=== PATIENT | male | born 1935 | race Caucasian/White ===

== ENCOUNTER 2018-05-15 11:08 | Inpatient (IN) | payer MEDICARE, SELFPAY ==
[2018-05-15] VITALS (13 sets, daily range): BP systolic 131–165; BP diastolic 49–79; PULSE 51–77; RESP 13–21; TEMP 36.7–37; O2SAT 93–99; BMI 24.4; BMI 26.2
--- NOTE | 2018-05-15 12:12 | EKG12_ITS ---
Test Reason : WEAKNESS Blood Pressure : / mmHG Vent. Rate : 065 BPM Atrial Rate : 260 BPM P-R Int : 000 ms QRS Dur : 098 ms QT Int : 458 ms P-R-T Axes : 255 021 -62 degrees QTc Int : 476 ms Atrial flutter with variable A-V block with premature ventricular or aberrantly conducted complexes ST & T wave abnormality, consider inferior ischemia Prolonged QT Abnormal ECG Confirmed by NAHUN LUCIANO, FORD ([id number]), scientific editor SYDNEY STRINGER ([id number]) on 05/19/2018 2:32:17 PM Referred By: Vy Qiu Confirmed By:FORD GARNICA MD
--- NOTE | 2018-05-15 12:15 | ED.VISSUMM ---
- ER Visit Summary Date of Service: 05/15/18 Chief Complaint: Generalized weakness History of Present Illness: The patient is a 82 M tree of noncemented diabetes has not meds according to family. Patient states the last 2 weeks he is just been generally weak. States is been constipated. Denies any melena or diarrhea. No fever. He has had decreased oral intake but denies any specific weight loss. States his blood sugars have been elevated over 400s the last several days and has had increased urination. Denies any fever. No chest pain. No severe headaches. No falls or trauma. Denies vomiting. Physical Examination: Older male no acute distress. Vital signs are stable and afebrile. HEENT exam pupils round reactive light. Extra motions are intact. No facial droop. Normal speech. Dry mucous membranes. No signs of trauma. Neck nontender no lymphadenopathy. Lungs clear to auscultation bilaterally. Heart a flutter on the monitor. No murmur. Rate about 70. Abdomen soft and nontender. Normal bowel sounds no peritoneal signs. Nondistended. Patient is moving all 4 extremities. No edema. No deformity. Equal symmetrical cardiovascular disease specialist strength. Equal symmetrical dorsi and plantar flexion. Neurologically is awake and alert. He answers questions and follows commands. He has no focal motor deficits. Test Results: CBC shows a white count of 16.9. Hemoglobin is 17. Electrolytes sodium 135. Potassium 5.3. CO2 and 9 anion gap of 30 glucose 649 BUN 59 creatinine 2.41. All consistent with DKA and dehydration. UA and troponin are pending. Ketones are moderate. EKG shows atrial flutter with a rate of 65 with no old EKG available for comparison. Chest x-ray shows Emergency Department Course and Treatment: Patient has an elevated blood sugar. Will be treated with 2 L of normal saline. Repeat exam the patient is improving he is on a second liter of fluid and insulin drip will be started. Treatment Plan: I have spoken to the hospitalist the patient will be admitted to the ICU. Disposition: Admission Impression: Acute generalized weakness Acute DKA History of xxi-uruzpyz-zhehbkkjk diabetes Acute dehydration and renal insufficiency Acute atrial flutter This note was generated with ZeeVeeation software. It may contain incorrect words, spelling, and punctuation that were not noted in review of the chart prior to signing ED Disposition - Plan for ED Patient: Chief Complaint: Weakness Referrals: Sheets,Elana, DO [Primary Care Provider] -
--- NOTE | 2018-05-15 12:30 | RAD_ITS ---
STUDY: X-RAY CHEST REASON FOR EXAM: Male, 82 years old. High blood sugar, weakness, confusion. TECHNIQUE: AP portable upright view of the chest on 2 films. COMPARISON: None. FINDINGS: The lungs are clear and expanded. There is no demonstrated pleural abnormality. Normal size heart. Normal mediastinum and kalyani. Normal visualized pulmonary arteries. There is atherosclerotic calcification of the aortic arch with some tortuosity of the descending thoracic segment. There are multilevel degenerative changes of the visualized thoracic spine. Hypertrophic osseous change also seen at the first costal cartilage junctions. 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 There is no demonstrated abnormality of the visualized soft tissue structures of the upper abdomen. RAD/Chest 1 View (Portable) IMPRESSION: No acute cardiopulmonary disease. Electronically Signed: William Acosta MD at 13:45 EST , Service support ,
[2018-05-15] MEDS: 0.9% Normal Saline 1,000 ML 1000 ML IV ×2 (12:44→16:08)
[2018-05-15 12:51] LABS: Absolute Neutrophil Count 15.6 X10^3/uL (2.0-7.7); Basophil# 0.01 X10^3/uL; Basophil% 0.1 % (0-1); Hematocrit 51.8 % (40-54); Hemoglobin 17.3 g/dl (13.0-16.5); Lymphocyte % 4.1 % (19-41); Mean Corp Hgb Conc 33.4 g/gl (32-36); Mean Corpuscular Hgb 30.8 pg (27.0-32.0); Mean Corpuscular Volume 92.2 fL (80-94); Mean Platelet Vol. 11.4 fl (6.2-12.0); Monocyte# 0.51 X10^3/uL; Neutrophil % 92.4 % (47-70); POSITIVE COUNT NO; POSITIVE DIFFERENTIAL NO; POSITIVE MORPHOLOGY NO; Platelet Count 269 K/mm3 (150-450); RBC Distribution Width SD 46.8 fl (35.1-43.9); Red Blood Count 5.62 M/mm3 (4.6-6.2); White Blood Count 16.9 K/mm3 (4.4-11.0)
[2018-05-15 12:56] LABS: Anion Gap 30 (5-15); BUN 59 mg/dL (7-18); BUN/Creat Ratio 24.5 RATIO (10-20); Chloride 96 mmol/L (98-107); Creatinine, Serum 2.41 mg/dL (0.70-1.30); EST Glomerular Filtration Rate 28 mL/min (>60); Est Glom Filt Rate - Afr Amer 33 mL/min (>60); Glucose 649 mg/dL (74-106); Potassium 5.3 mmol/L (3.5-5.1); Sodium Level 135 mmol/L (136-145)
--- NOTE | 2018-05-15 14:40 | HP.PCM_ITS ---
History of Present Illness Date of Admission: 05/15/18 Chief Complaint: worsening lethargy for 2 weeks The patient is a 82 year old M with a PMH of diabetes mellitus, noncompliant with his metformin. He was admitted through the ED on 05/15/2018 with a complaint of generalized weakness and lethargy for 2 weeks. He said he had just not been feeling well and had progressively worsened and so he decided coming to the ED today. Patient has been diabetic for several years and states he was started on insulin which was stopped and he was switched to oral metformin. He admits to not being very compliant with his metformin and does not remember the last time he took it. He denied any fever chills, any cough or chest pain, shortness of breath, any abdominal pain, any diarrhea vomiting. Review of systems otherwise negative. For himself very well. In the ED, vitals were essentially stable he was saturating 96% on 2 L of oxygen. Chemistry showed sodium of 135 with potassium of 5.3 and bicarb of 9 and anion gap of 30. Creatinine was 2.41 with no baseline in EMR and glucose was 649. CBC showed white cell count of 16.9 hemoglobin of 17.3.CXR showed no acute cardiopulmonary process, and EKG showed atrial flutter, with ?T wave inversions in inferior leads. Troponin was pending. He is being admitted to be managed for DKA and atrial flutter. [] Past Medical History Allergies No Known Allergies Allergy (Verified 05/15/18 11:12) Home Medications: Ambulatory Orders Medication Instructions Recorded Aspirin 162.5 mg PO DAILY@0800 05/15/18 Metformin HCl [Glucophage] 1,000 mg PO BIDCM 05/15/18 Surgical History: no surgical history Psychiatric History: No pertinent psych hx Lives: Alone Smoking Status: Former smoker Alcohol: None Drugs: None - *Family History Sibling History Items: Cancer Maternal History Items: High Cholesterol, Heart Disease Paternal History Items: Hypertension Review of Systems Constitutional: Reports: Anorexia, Malaise, Weakness, Fatigue. Denies: Chills, Fever Eyes: Denies: Blurred vision HEENT: Denies: Head Aches, Sinus Congestion, Sinus Drainage Cardiovascular: Denies: Chest Pain, Chest Pressure, Chest Tightness, Heaviness, Light Headedness, Palpitations Respiratory: Denies: Cough, Shortness of Breath, Shortness of breath at rest, Shortness of breath upon exertion, Sputum production Gastrointestinal: Denies: Abdominal Pain, Nausea, Vomiting Genitourinary: Denies: Dysuria Musculoskeletal: Denies: Joint Pain, Joint Tenderness Skin: Denies: Rash, Wounds Neurological: Denies: Numbness, Tingling, Focal weakness Psychiatric: Denies: Anxiety, Depression, Homicidal Ideations, Suicidal Ideations Hematologic/ Lymphatic: Denies: Easy Bruising, Easy Bleeding VTE Information - Inpt Only VTE Present on Admission: No VTE Pharm Prophylaxis ordered?: Yes - Physical Exam General: Alert, Oriented x3, Cooperative, No apparent distress, Lethargic HEENT: Atraumatic, PERRLA, EOMI, Normocephalic Oral: Dry Mucosa Neck: Supple, No JVD, Negative Carotid Bruits Lungs: Clear to auscultation, Normal air movement, No rhonchi, No wheeze, No rales Cardiovascular: Regular rate, Regular Rhythm, Normal S1, Normal S2, No murmurs Abdomen: Bowel Sounds Present, Soft, Non Tender, Non-Distended, No Hepato- splenomegaly Extremities: No clubbing, No cyanosis, No edema, Capillary Refill Less than 3 Seconds Skin: - - ~ 2cm thickened scaly nodular plaque on left forearm Musculoskeletal: No Tenderness to Palpation of Joints or Extremities Lymphatic: No Cervical, Supraclavicular, or Inguinal Adenopathy Neurological: Cranial nerves II-XII grossly intact Psych/Mental Status: Normal Affect, Appropriate, Alert and oriented to time, place, person, mood and affect Vital Signs Temp Pulse Resp BP Pulse Ox 98.6 F 67 18 134/58 H 96 05/15/18 11:10 05/15/18 11:10 05/15/18 11:10 05/15/18 11:10 05/15/18 11:10 Oxygen Delivery Method Room Air Weight: 175 lb Body Mass Index (BMI) 24.4 Laboratory Tests Past 24 Hrs 05/15/18 05/15/18 05/15/18 11:50 11:50 11:50 WBC 16.9 H RBC 5.62 Hgb 17.3 H Hct 51.8 MCV 92.2 MCH 30.8 MCHC 33.4 RDW 14.0 RDW Differential 46.8 H Plt Count 269 MPV 11.4 Immature Gran % (Auto) 0.400 Neut % (Auto) 92.4 H Lymph % (Auto) 4.1 L [place] % (Auto) 3.0 Eos % (Auto) 0.0 Baso % (Auto) 0.1 Absolute Neuts (auto) 15.6 H Absolute Lymphs (auto) 0.70 L Total Counted Not Reportable Sodium 135 L Potassium 5.3 H Chloride 96 L Carbon Dioxide 9.0 L* Anion Gap 30 H BUN 59 H Creatinine 2.41 H Estim Creat Clear Calc 25.60 Est GFR (MDRD) Af Amer 33 L Est GFR (MDRD) Non-Af 28 L BUN/Creatinine Ratio 24.5 H Glucose 649 H* Calcium 9.0 Acetone Level MODERATE H Diagnostic Data Chest X-Ray 05/15/18 12:30 IMPRESSION: No acute cardiopulmonary disease. Electronically Signed: William Acosta MD at 13:45 EST , Service support , Assessment/Plan 82 y/o With a history of diabetes mellitus and noncompliant with medication presenting with a complaint of generalized worsening weakness and lethargy for 2 weeks. 1. DKA in a known diabetic due to noncompliance * not compliant with his meds; the last time he took his metformin. * Bicarb was 9 and anion gap is 30. * ABG not done. Troponin pending. Chest x-ray showed no acute cardia pulmonary process. * CBC showed white cell count around 16 but this is likely due to hemoconcentration as hemoglobin was also elevated at 17.3. * Potassium is 5.3, sodium is 135. * Admit to ICU. * Continue IV fluids NS at 250 cc/h; started on insulin drip 1 unit/kg/h in the ED. Will continue. * Monitor BMP every 4. check A1C * Will check ABG.\ * [facility] consult. * continue IV fluids and insulin drip until anion gap closes. To switch to D5 with half-normal saline 1 blood sugars less than 250. * Once Process will switch to oral meds and insulin or other oral hypoglycemic agent based on A1c. * 2. Atrial flutter * EKG showed atrial flutter with possible T wave inversions in inferior leads. * no Known history of known cardiac disease. * this may be induced by stress of DKA * Initial troponin-0.056; will cycle and monitor; if it trends up, will place cardiology consult tomorrow morning. * Order 2D echo. * cardiology consult. * 3. CEE * Likely prerenal due to decreased intake.. No baseline known patient states he never been told he has a kidney problem. * hdyrate with IVF and monitor * will check urine electrolytes to assess FeNA * 4. Hyponatremia: Na is 135; due to hyperglycemia. Corrected sodium is 144. WIll monitor 5. Diabetes mellitus: noncompliant with meds. Currently in DKA; management as under 1. DVT prophylaxis: heparin Code status: Patient counseled extensively about different types of CODE STATUS including full code, DNR CCA and DNR CCA. Patient elects to be full code. Total [id number] time 17 minutes. Code Visit Inpatient E&M: 18656 Init Hosp L3 Procedures: 72248 Advncd Care Plan 30 Min
[2018-05-15] MEDS: 0.9% Normal Saline 1,000 ML 250 ML IV (16:30)
[2018-05-15 16:45] LABS: Bedside Glucose 473 mg/dL (70-110)
[2018-05-15 18:01] LABS: Bedside Glucose 390 mg/dL (70-110)
[2018-05-15 18:05] LABS: Bedside Glucose 364 mg/dL (70-110)
[2018-05-15 18:31] LABS: Anion Gap 25 (5-15); BUN 60 mg/dL (7-18); BUN/Creat Ratio 26.7 RATIO (10-20); Calcium,Total 8.2 mg/dL (8.5-10.1); Chloride 106 mmol/L (98-107); Creatinine, Serum 2.25 mg/dL (0.70-1.30); EST Glomerular Filtration Rate 30 mL/min (>60); Est Glom Filt Rate - Afr Amer 36 mL/min (>60); Estimated Creatinine Clearance 26.59 ml/min; Glucose 311 mg/dL (74-106); Potassium 4.4 mmol/L (3.5-5.1); Sodium Level 143 mmol/L (136-145)
[2018-05-15 18:37] LABS: Hemoglobin A1c 13.3 % (4.2-6.3)
[2018-05-15 19:06] LABS: Bedside Glucose 277 mg/dL (70-110)
[2018-05-15] MEDS: 0.9% Normal Saline 1,000 ML 175 ML IV (21:05)
[2018-05-15] MEDS: Heparin Injection (Vial) 5,000 UNIT/ML VIAL 5000 UNIT SC (21:11)
[2018-05-15] MEDS: Magnesium Hydroxide 30 ML UDC 45 ML PO (21:12)
[2018-05-15] MEDS: Dext 5%-0.45% NS 1,000 ML 150 ML IV (21:15)
[2018-05-15 21:44] LABS: Bacteria 0 SEEN /hpf (None Seen); Mucous, Urine 0 SEEN /hpf (<or=2+)
[2018-05-15 21:46] LABS: Color, Urine Yellow (Yellow); Glucose, Dipstick 1000 mg/dl (Normal); Leukocyte Esterase-Dipstick 25 /ul (Negative); Nitrite-Dipstick Negative (Negative); Occult Blood-Urine 150 /ul (Negative); Protein-Dipstick 30 mg/dl (Negative); Urine Bilirubin Dipstick Negative (Negative); Urine Clarity Clear (Clear); Urine Urobilinogen 1 mg/dl (Normal)
[2018-05-15 21:48] LABS: Urine Sodium 20 mmol/L (Not Establ.)
[2018-05-15 21:56] LABS: Hyaline Cast 0-5 SEEN /lpf (0-5); Ketone-Dipstick 150 mg/dl (Negative); Red Blood Cells-Urine 0-5 SEEN /hpf (0-5); Squamous Epithelial Cells - UA 0-5 SEEN /hpf (0-5); White Blood Cells 5-10 SEEN /hpf (0-5)
[2018-05-15] MEDS: 0.9% NaCl Peripheral Flush Adult/Peds IV ×2 (22:05→22:06)
[2018-05-15 22:10] LABS: Bedside Glucose 201 mg/dL (70-110)
[2018-05-15 22:10] LABS: Bedside Glucose 180 mg/dL (70-110)
[2018-05-15 22:10] LABS: Bedside Glucose 222 mg/dL (70-110)
[2018-05-15 22:33] LABS: Anion Gap 17 (5-15); BUN 59 mg/dL (7-18); BUN/Creat Ratio 30.9 RATIO (10-20); Calcium,Total 7.9 mg/dL (8.5-10.1); Chloride 109 mmol/L (98-107); Creatinine, Serum 1.91 mg/dL (0.70-1.30); EST Glomerular Filtration Rate 36 mL/min (>60); Est Glom Filt Rate - Afr Amer 44 mL/min (>60); Estimated Creatinine Clearance 31.32 ml/min; Glucose 221 mg/dL (74-106); Potassium 4.2 mmol/L (3.5-5.1); Sodium Level 143 mmol/L (136-145)
[2018-05-16] VITALS (19 sets, daily range): BP systolic 121–146; BP diastolic 50–66; PULSE 49–79; RESP 11–21; TEMP 36.1–37.1; O2SAT 94–99
[2018-05-16 00:11] LABS: Bedside Glucose 202 mg/dL (70-110)
[2018-05-16 00:11] LABS: Bedside Glucose 190 mg/dL (70-110)
[2018-05-16 02:35] LABS: Anion Gap 10 (5-15); BUN 54 mg/dL (7-18); BUN/Creat Ratio 29.5 RATIO (10-20); Calcium,Total 8.1 mg/dL (8.5-10.1); Chloride 112 mmol/L (98-107); Creatinine, Serum 1.83 mg/dL (0.70-1.30); EST Glomerular Filtration Rate 38 mL/min (>60); Est Glom Filt Rate - Afr Amer 46 mL/min (>60); Estimated Creatinine Clearance 32.69 ml/min; Glucose 189 mg/dL (74-106); Potassium 3.7 mmol/L (3.5-5.1); Sodium Level 145 mmol/L (136-145)
[2018-05-16 03:06] LABS: Bedside Glucose 158 mg/dL (70-110)
[2018-05-16 03:06] LABS: Bedside Glucose 163 mg/dL (70-110)
[2018-05-16 03:06] LABS: Bedside Glucose 201 mg/dL (70-110)
[2018-05-16] MEDS: Dext 5%-0.45% NS 1,000 ML 150 ML IV (04:02)
[2018-05-16] MEDS: Heparin Injection (Vial) 5,000 UNIT/ML VIAL 5000 UNIT SC (05:11)
[2018-05-16 06:06] LABS: Bedside Glucose 117 mg/dL (70-110)
[2018-05-16 06:06] LABS: Bedside Glucose 94 mg/dL (70-110)
[2018-05-16 06:26] LABS: Absolute Lymphocyte Count 0.81 X10^3/ul (0.83-4.51); Absolute Neutrophil Count 13.4 X10^3/uL (2.0-7.7); Basophil# 0.01 X10^3/uL; Basophil% 0.1 % (0-1); Eosinophil# 0.01 X10^3/uL; Eosinophils% 0.1 % (0-5); Hematocrit 43.4 % (40-54); Hemoglobin 15.1 g/dl (13.0-16.5); Lymphocyte # 0.81 X10^3/ul (4.0); Lymphocyte % 5.4 % (19-41); Mean Corp Hgb Conc 34.8 g/gl (32-36); Mean Corpuscular Volume 86.1 fL (80-94); Mean Platelet Vol. 10.9 fl (6.2-12.0); Monocyte# 0.88 X10^3/uL; Monocyte% 5.8 % (0-10); Neutrophil # 13.39 X10^3/uL (2.7-7.7); Neutrophil % 88.5 % (47-70); Platelet Count 179 K/mm3 (150-450); RBC Distribution Width CV 13.6 % (11.6-14.6); RBC Distribution Width SD 42.1 fl (35.1-43.9); Red Blood Count 5.04 M/mm3 (4.6-6.2); White Blood Count 15.1 K/mm3 (4.4-11.0)
[2018-05-16 06:27] LABS: POSITIVE COUNT NO; POSITIVE DIFFERENTIAL NO; POSITIVE MORPHOLOGY NO
[2018-05-16 06:36] LABS: Anion Gap 10 (5-15); BUN 50 mg/dL (7-18); BUN/Creat Ratio 28.4 RATIO (10-20); Calcium,Total 8.2 mg/dL (8.5-10.1); Chloride 113 mmol/L (98-107); Creatinine, Serum 1.76 mg/dL (0.70-1.30); EST Glomerular Filtration Rate 40 mL/min (>60); Est Glom Filt Rate - Afr Amer 48 mL/min (>60); Estimated Creatinine Clearance 33.99 ml/min; Glucose 102 mg/dL (74-106); Potassium 3.8 mmol/L (3.5-5.1); Sodium Level 147 mmol/L (136-145)
--- NOTE | 2018-05-16 06:49 | CON.PCM_ITS ---
Reason for Consult Date of Consultation: 05/16/18 Reason for Consultation: Diabetic ketoacidosis History of Present Illness: The patient is an 82-year-old male, with a history as outlined below, who presented to the emergency department on May 15 with complaints of generalized weakness and decreased urine output. The patient does have a history of diabetes mellitus and is currently prescribed outpatient metformin twice daily. The patient states that at his baseline, his diabetes is managed by his primary care provider, Dr. Ambrosio in [place]. He does report that he has not taken his metformin for several days. He is not able to give a reason why. The patient does reside in a home by himself currently. On presentation to the emergency department, the patient was noted to be afebrile, hemodynamically stable and maintaining appropriate oxygen saturations on room air. Laboratory evaluation revealed elevated white blood cell count to 17,000. Chemistry profile was notable for a potassium of 5.3, chloride of 96, bicarbonate of 9, acute kidney injury with creatinine of 2.41 and an elevated anion gap to 30. Patient's glucose was noted to be 649. Troponin was mildly elevated to 0.056. A moderate serum acetone level was noted. A plain film chest x-ray was obtained and revealed no acute cardiopulmonary process. The patient was provided with supplemental IV fluid hydration and started on a continuous insulin infusion. He was subsequently admitted to the medical intensive care unit for ongoing management. No overnight issues were noted by ICU nursing staff. The patient's blood glucose levels are now under improved control. His anion gap has been closed x2. Orders have been given to initiate the patient on basal insulin and sliding scale coverage. Past Medical History Allergies No Known Allergies Allergy (Verified 05/15/18 11:12) Home Medications: Ambulatory Orders Medication Instructions Recorded Aspirin 162.5 mg PO DAILY@0800 05/15/18 Metformin HCl [Glucophage] 1,000 mg PO BIDCM 05/15/18 Surgical History: no surgical history Psychiatric History: No pertinent psych hx Lives: Alone Smoking Status: Former smoker Tobacco Use: Cigarettes Alcohol: None Drugs: None - *Family History Sibling History Items: Cancer Maternal History Items: High Cholesterol, Heart Disease Paternal History Items: Hypertension Review of Systems Constitutional: Reports: Malaise, Weakness Eyes: Denies: Blurred vision, Double vision HEENT: Denies: Head Aches, Sinus Congestion, Sinus Drainage Cardiovascular: Denies: Chest Pain, Palpitations Respiratory: Denies: Cough, Shortness of breath at rest, Sputum production Gastrointestinal: Denies: Abdominal Pain, Nausea, Vomiting Genitourinary: Reports: - - Decreased urine output Musculoskeletal: Denies: Joint Pain, Joint Tenderness Skin: Denies: Rash, Wounds Neurological: Denies: Numbness, Tingling, Focal weakness Psychiatric: Denies: Anxiety, Depression, Homicidal Ideations, Suicidal Ideations Hematologic/ Lymphatic: Denies: Easy Bruising, Easy Bleeding Objective: The patient's most recent lab work, culture data and imaging studies have all been personally reviewed. - Physical Exam General: Alert, Cooperative, No apparent distress HEENT: Atraumatic, PERRLA, Normocephalic Oral: Dry Mucosa Neck: Supple, No Nodes, Trachea Midline Lungs: Normal air movement, No rhonchi, No wheeze, No rales Cardiovascular: Normal S1, Normal S2, Bradycardic, Irregular Rate Abdomen: Bowel Sounds Present, Soft, Non Tender Extremities: No clubbing, No cyanosis, No edema Skin: No breakdown Musculoskeletal: No Muscle Wasting Lymphatic: No Cervical, Supraclavicular, or Inguinal Adenopathy Neurological: Cranial nerves II-XII grossly intact, Neuro grossly intact Psych/Mental Status: Normal Affect, Appropriate Vital Signs Temp Pulse Resp BP Pulse Ox 36.1 C L 71 19 H 125/50 H 98 05/16/18 04:00 05/16/18 06:00 05/16/18 06:00 05/16/18 06:00 05/16/18 06:00 Oxygen Flow Rate (L/min) 2 Oxygen Delivery Method Nasal Cannula Weight: 186 lb 15.232 oz Body Mass Index (BMI) 26.2 Finger Stick Blood Glucose 105 Intake and Output for Last 24 Hours 05/14/18 05/15/18 05/16/18 23:59 23:59 23:59 Intake Total 2404 / 2404 2060.6 / 2060.6 Output Total 300 / 300 550 / 550 Balance 2104 / 2104 1510.6 / 1510.6 Laboratory Tests Past 24 Hrs 05/15/18 05/15/18 05/15/18 11:50 11:50 11:50 WBC 16.9 H RBC 5.62 Hgb 17.3 H Hct 51.8 MCV 92.2 MCH 30.8 MCHC 33.4 RDW 14.0 RDW Differential 46.8 H Plt Count 269 MPV 11.4 Immature Gran % (Auto) 0.400 Neut % (Auto) 92.4 H Lymph % (Auto) 4.1 L [place] % (Auto) 3.0 Eos % (Auto) 0.0 Baso % (Auto) 0.1 Absolute Neuts (auto) 15.6 H Absolute Lymphs (auto) 0.70 L Total Counted Not Reportable Sodium 135 L Potassium 5.3 H Chloride 96 L Carbon Dioxide 9.0 L* Anion Gap 30 H BUN 59 H Creatinine 2.41 H Estim Creat Clear Calc 25.60 Est GFR (MDRD) Af Amer 33 L Est GFR (MDRD) Non-Af 28 L BUN/Creatinine Ratio 24.5 H Glucose 649 H* Hemoglobin A1c Calcium 9.0 Troponin I Urine Color Urine Clarity Urine pH Ur Specific [place] Urine Protein Urine Glucose (UA) Urine Ketones Urine Occult Blood Urine Nitrite Urine Bilirubin Urine Urobilinogen Ur Leukocyte Esterase Urine RBC Urine WBC Ur Squamous Epith Cells Urine Bacteria Hyaline Casts Urine Mucus Ur Random Sodium Urine Creatinine Acetone Level MODERATE H 05/15/18 05/15/18 05/15/18 11:50 18:00 18:00 WBC RBC Hgb Hct MCV MCH MCHC RDW RDW Differential Plt Count MPV Immature Gran % (Auto) Neut % (Auto) Lymph % (Auto) [place] % (Auto) Eos % (Auto) Baso % (Auto) Absolute Neuts (auto) Absolute Lymphs (auto) Total Counted Sodium 143 Potassium 4.4 Chloride 106 Carbon Dioxide 12.0 L Anion Gap 25 H BUN 60 H Creatinine 2.25 H Estim Creat Clear Calc 26.59 Est GFR (MDRD) Af Amer 36 L Est GFR (MDRD) Non-Af 30 L BUN/Creatinine Ratio 26.7 H Glucose 311 H Hemoglobin A1c 13.3 H Calcium 8.2 L Troponin I 0.056 H Urine Color Urine Clarity Urine pH Ur Specific [place] Urine Protein Urine Glucose (UA) Urine Ketones Urine Occult Blood Urine Nitrite Urine Bilirubin Urine Urobilinogen Ur Leukocyte Esterase Urine RBC Urine WBC Ur Squamous Epith Cells Urine Bacteria Hyaline Casts Urine Mucus Ur Random Sodium Urine Creatinine Acetone Level 05/15/18 05/15/18 05/15/18 19:35 21:20 21:20 WBC RBC Hgb Hct MCV MCH MCHC RDW RDW Differential Plt Count MPV Immature Gran % (Auto) Neut % (Auto) Lymph % (Auto) [place] % (Auto) Eos % (Auto) Baso % (Auto) Absolute Neuts (auto) Absolute Lymphs (auto) Total Counted Sodium Potassium Chloride Carbon Dioxide Anion Gap BUN Creatinine Estim Creat Clear Calc Est GFR (MDRD) Af Amer Est GFR (MDRD) Non-Af BUN/Creatinine Ratio Glucose Hemoglobin A1c Calcium Troponin I 0.070 H Urine Color Yellow Urine Clarity Clear Urine pH 5.0 Ur Specific [place] 1.020 Urine Protein 30 H Urine Glucose (UA) 1000 H Urine Ketones 150 H Urine Occult Blood 150 H Urine Nitrite Negative Urine Bilirubin Negative Urine Urobilinogen 1 H Ur Leukocyte Esterase 25 H Urine RBC 0-5 SEEN Urine WBC 5-10 SEEN Ur Squamous Epith Cells 0-5 SEEN Urine Bacteria 0 SEEN Hyaline Casts 0-5 SEEN Urine Mucus 0 SEEN Ur Random Sodium Urine Creatinine 68.20 Acetone Level 05/15/18 05/15/18 05/15/18 21:20 22:10 22:10 WBC RBC Hgb Hct MCV MCH MCHC RDW RDW Differential Plt Count MPV Immature Gran % (Auto) Neut % (Auto) Lymph % (Auto) [place] % (Auto) Eos % (Auto) Baso % (Auto) Absolute Neuts (auto) Absolute Lymphs (auto) Total Counted Sodium 143 Potassium 4.2 Chloride 109 H Carbon Dioxide 17.0 L Anion Gap 17 H BUN 59 H Creatinine 1.91 H Estim Creat Clear Calc 31.32 Est GFR (MDRD) Af Amer 44 L Est GFR (MDRD) Non-Af 36 L BUN/Creatinine Ratio 30.9 H Glucose 221 H Hemoglobin A1c Calcium 7.9 L Troponin I 0.077 H Urine Color Urine Clarity Urine pH Ur Specific [place] Urine Protein Urine Glucose (UA) Urine Ketones Urine Occult Blood Urine Nitrite Urine Bilirubin Urine Urobilinogen Ur Leukocyte Esterase Urine RBC Urine WBC Ur Squamous Epith Cells Urine Bacteria Hyaline Casts Urine Mucus Ur Random Sodium 20 Urine Creatinine Acetone Level 05/16/18 05/16/18 05/16/18 02:00 06:05 06:05 WBC 15.1 H RBC 5.04 Hgb 15.1 Hct 43.4 MCV 86.1 MCH 30.0 MCHC 34.8 RDW 13.6 RDW Differential 42.1 Plt Count 179 MPV 10.9 Immature Gran % (Auto) 0.100 Neut % (Auto) 88.5 H Lymph % (Auto) 5.4 L [place] % (Auto) 5.8 Eos % (Auto) 0.1 Baso % (Auto) 0.1 Absolute Neuts (auto) 13.4 H Absolute Lymphs (auto) 0.81 L Total Counted Not Reportable Sodium 145 147 H Potassium 3.7 3.8 Chloride 112 H 113 H Carbon Dioxide 23.0 24.0 Anion Gap 10 10 BUN 54 H 50 H Creatinine 1.83 H 1.76 H Estim Creat Clear Calc 32.69 33.99 Est GFR (MDRD) Af Amer 46 L 48 L Est GFR (MDRD) Non-Af 38 L 40 L BUN/Creatinine Ratio 29.5 H 28.4 H Glucose 189 H 102 Hemoglobin A1c Calcium 8.1 L 8.2 L Troponin I Urine Color Urine Clarity Urine pH Ur Specific [place] Urine Protein Urine Glucose (UA) Urine Ketones Urine Occult Blood Urine Nitrite Urine Bilirubin Urine Urobilinogen Ur Leukocyte Esterase Urine RBC Urine WBC Ur Squamous Epith Cells Urine Bacteria Hyaline Casts Urine Mucus Ur Random Sodium Urine Creatinine Acetone Level POC Glucose 05/16/18 05/16/18 05/16/18 05:03 04:04 02:59 POC Glucose 94 117 H 163 H 05/16/18 05/16/18 05/16/18 02:03 01:04 00:00 POC Glucose 158 H 201 H 202 H 05/15/18 05/15/18 05/15/18 23:00 22:00 21:09 POC Glucose 190 H 201 H 180 H 05/15/18 05/15/18 05/15/18 20:03 19:00 17:58 POC Glucose 222 H 277 H 364 H 05/15/18 05/15/18 17:22 16:34 POC Glucose 390 H 473 H* Clinical Impression(s) from Imaging Studies Chest X-Ray 05/15/18 12:30 IMPRESSION: No acute cardiopulmonary disease. Electronically Signed: William Acosta MD at 13:45 EST , Service support , Assessment/Plan RECOMMENDATIONS: 1. Continue management per DKA protocol. The patient can be transitioned from continuous insulin infusion to basal insulin and sliding scale coverage. 2. Diet can be advanced at this time. 3. Supplemental IV fluids can be continued, given improving renal insufficiency. 4. Avoid metformin, given kidney dysfunction 5. May wish to consider holding beta-kajal, given slow a-flutter noted on telemetry. IMPRESSIONS: 1. Diabetic ketoacidosis secondary to outpatient medication noncompliance The patient presented to the hospital with diabetic ketoacidosis secondary to outpatient medication noncompliance. His hemoglobin A1c was noted to be greater than 13. He has been managed per DKA protocol with supplemental IV fluid hydration and continuous insulin infusion. His anion gap has now been closed x2. Therefore, recommend transitioning to basal insulin regimen and sliding scale coverage. The patient's diet can be advanced accordingly. Avoid metform in, given renal insufficiency. Nutrition consultation placed for diabetic education. 2. Acute kidney injury Likely secondary to prerenal azotemia in the setting of osmotic diuresis due to diabetic ketoacidosis. Improving with supplemental IV fluid hydration. This will be continued without change. Continue to monitor urine output. No current indication for renal replacement therapy. 3. Atrial flutter/troponin elevation Unclear chronicity for the patient's atrial flutter. Troponin elevation may be secondary to demand ischemia in the setting of #1. An echocardiogram is currently pending for further evaluation. This note was generated with [employer] dictation software. It may contain incorrect words, spelling, and punctuation that were not noted in checking the note before signing. DISPOSITION: The patient is medically stable for transfer out of the intensive care unit. Given the patient's lack of ongoing ICU needs, will sign off. Please call with any additional questions. Code Visit Inpatient E&M: 77427 Init Hosp L2
--- NOTE | 2018-05-16 06:55 | PCM.PN.HOSP ---
Subjective: Patient notes feeling improved since initial presentation and denies any acute events. Patient anion gap closure x2 now with transition off insulin drip to subcu insulin. Patient currently eating and states this is well tolerated. Patient remains in atrial flutter, asymptomatic. Discussed importance of compliance with diabetic regimen and stated that upon discharge she would need to be restarted on insulin therapy secondary to his elevated A1c. Patient amenable transition out of the ICU given improvement. Patient denies fevers, chills, nausea, emesis, abdominal pain, chest pain or dyspnea. Objective: Physical Examination: General: awake, alert, oriented x 3 and cooperative, seated upright in the ICU bed in no apparent distress, notes feeling improved since initial presentation. Skin: normal color, turgor, no icterus, cyanosis except occasional various staged extremity ecchymoses. HEENT: AT/NC, EOMI, PERRLA, mildly dry MM. Lungs: CTA bilaterally, moderate effort, mild decrease BL bases, no rales, ronchi or wheezing. Heart: Regular, currently rate controlled; no gallop, rub audible. Abdomen: soft, NTTP, ND, normal BS. Extremities: no cyanosis, clubbing, or edema. Neurological: patient awake, alert, oriented x 3; cognitive function intact; pupils equally reactive to light and accomodation; cranial nerves II-XII grossly normal, moving all 4 extremities, no focal deficits, strength moderately to severely globally decreased secondary to acute presentation. Psychiatric: affect appears fatigued, no acute evidence of depressive or anxiety feelings. Vitals/I&O's: Vital Signs Temp Pulse Resp BP Pulse Ox 97 F L 71 19 H 125/50 H 98 05/16/18 04:00 05/16/18 06:00 05/16/18 06:00 05/16/18 06:00 05/16/18 06:00 Oxygen Flow Rate (L/min) 2 Oxygen Delivery Method Nasal Cannula Weight: 186 lb 15.232 oz Body Mass Index (BMI) 26.2 Finger Stick Blood Glucose 105 Intake and Output for Last 24 Hours 05/14/18 05/15/18 05/16/18 23:59 23:59 23:59 Intake Total 2404 / 2404 2060.6 / 2060.6 Output Total 300 / 300 550 / 550 Balance 2104 / 2104 1510.6 / 1510.6 Laboratory Results 05/15/18 11:50: WBC 16.9 H, RBC 5.62, Hgb 17.3 H, Hct 51.8, MCV 92.2, MCH 30.8, MCHC 33.4, RDW 14.0, RDW Differential 46.8 H, Plt Count 269, MPV 11.4, Immature Gran % (Auto) 0.400, Neut % (Auto) 92.4 H, Lymph % (Auto) 4.1 L, Childress % (Auto) 3.0, Eos % (Auto) 0.0, Baso % (Auto) 0.1, Absolute Neuts (auto) 15.6 H, Absolute Lymphs (auto) 0.70 L, Total Counted Not Reportable 05/15/18 11:50: Sodium 135 L, Potassium 5.3 H, Chloride 96 L, Carbon Dioxide 9.0 L*, Anion Gap 30 H, BUN 59 H, Creatinine 2.41 H, Estim Creat Clear Calc 25.60, Est GFR (MDRD) Af Amer 33 L, Est GFR (MDRD) Non-Af 28 L, BUN/Creatinine Ratio 24.5 H, Glucose 649 H*, Calcium 9.0 05/15/18 11:50: Acetone Level MODERATE H 05/15/18 11:50: Troponin I 0.056 H 05/15/18 16:34: POC Glucose 473 H* 05/15/18 17:22: POC Glucose 390 H 05/15/18 17:58: POC Glucose 364 H 05/15/18 18:00: Hemoglobin A1c 13.3 H 05/15/18 18:00: Sodium 143, Potassium 4.4, Chloride 106, Carbon Dioxide 12.0 L, Anion Gap 25 H, BUN 60 H, Creatinine 2.25 H, Estim Creat Clear Calc 26.59, Est GFR (MDRD) Af Amer 36 L, Est GFR (MDRD) Non-Af 30 L, BUN/Creatinine Ratio 26.7 H, Glucose 311 H, Calcium 8.2 L 05/15/18 19:00: POC Glucose 277 H 05/15/18 19:35: Troponin I 0.070 H 05/15/18 20:03: POC Glucose 222 H 05/15/18 21:09: POC Glucose 180 H 05/15/18 21:20: Urine Color Yellow, Urine Clarity Clear, Urine pH 5.0, Ur Specific [place] 1.020, Urine Protein 30 H, Urine Glucose (UA) 1000 H, Urine Ketones 150 H, Urine Occult Blood 150 H, Urine Nitrite Negative, Urine Bilirubin Negative, Urine Urobilinogen 1 H, Ur Leukocyte Esterase 25 H, Urine RBC 0-5 SEEN, Urine WBC 5-10 SEEN, Ur Squamous Epith Cells 0-5 SEEN, Urine Bacteria 0 SEEN, Hyaline Casts 0-5 SEEN, Urine Mucus 0 SEEN 05/15/18 21:20: Urine Creatinine 68.20 05/15/18 21:20: Ur Random Sodium 20 05/15/18 22:00: POC Glucose 201 H 05/15/18 22:10: Sodium 143, Potassium 4.2, Chloride 109 H, Carbon Dioxide 17.0 L, Anion Gap 17 H, BUN 59 H, Creatinine 1.91 H, Estim Creat Clear Calc 31.32, Est GFR (MDRD) Af Amer 44 L, Est GFR (MDRD) Non-Af 36 L, BUN/Creatinine Ratio 30.9 H, Glucose 221 H, Calcium 7.9 L 05/15/18 22:10: Troponin I 0.077 H 05/15/18 23:00: POC Glucose 190 H 05/16/18 00:00: POC Glucose 202 H 05/16/18 01:04: POC Glucose 201 H 05/16/18 02:00: Sodium 145, Potassium 3.7, Chloride 112 H, Carbon Dioxide 23.0, Anion Gap 10, BUN 54 H, Creatinine 1.83 H, Estim Creat Clear Calc 32.69, Est GFR (MDRD) Af Amer 46 L, Est GFR (MDRD) Non-Af 38 L, BUN/Creatinine Ratio 29.5 H, Glucose 189 H, Calcium 8.1 L 05/16/18 02:03: POC Glucose 158 H 05/16/18 02:59: POC Glucose 163 H 05/16/18 04:04: POC Glucose 117 H 05/16/18 05:03: POC Glucose 94 05/16/18 06:05: WBC 15.1 H, RBC 5.04, Hgb 15.1, Hct 43.4, MCV 86.1, MCH 30.0, MCHC 34.8, RDW 13.6, RDW Differential 42.1, Plt Count 179, MPV 10.9, Immature Gran % (Auto) 0.100, Neut % (Auto) 88.5 H, Lymph % (Auto) 5.4 L, Childress % (Auto) 5.8, Eos % (Auto) 0.1, Baso % (Auto) 0.1, Absolute Neuts (auto) 13.4 H, Absolute Lymphs (auto) 0.81 L, Total Counted Not Reportable 05/16/18 06:05: Sodium 147 H, Potassium 3.8, Chloride 113 H, Carbon Dioxide 24.0, Anion Gap 10, BUN 50 H, Creatinine 1.76 H, Estim Creat Clear Calc 33.99, Est GFR (MDRD) Af Amer 48 L, Est GFR (MDRD) Non-Af 40 L, BUN/Creatinine Ratio 28.4 H, Glucose 102, Calcium 8.2 L Current Medications Dextrose (D50w Syringe) 0 gm IV X1 PRN; Protocol PRN Reason: HYPOGLYCEMIA Heparin Sodium (Porcine) (Heparin Na) 5,000 unit SC Q8 [facility] Last Admin: 05/16/18 05:11 Dose: 5,000 unit Sodium Chloride () 250 mls @ 15 mls/hr IV .[id number] PRN PRN Reason: SALINE FLUSH Sodium Chloride () 250 mls @ 15 mls/hr IV .[id number] PRN PRN Reason: SALINE FLUSH Dextrose/Sodium Chloride () 1,000 mls @ 150 mls/hr IV .[id number] [facility] Last Admin: 05/16/18 04:02 Dose: 150 mls/hr Influenza Virus Vaccine Quadrival (Fluarix/Fluzone) 0.5 ml IM .ONCE ONE Stop: 05/16/18 10:01 Insulin Glargine (Lantus (Bkc)) 15 units SC BID MEDINA Insulin Human Lispro (Humalog Kwikpen (Bkc)) 0 unit SC ACHS [facility]; Protocol Magnesium Hydroxide (Milk Of Magnesia) 30 ml PO DAILY PRN PRN PRN Reason: Constipation Sodium Chloride () 5 - 15 ml IV UD PRN PRN Reason: SALINE FLUSH Last Admin: 05/15/18 22:06 Dose: 15 ml Medical Necessity - Tobacco Use Smoking Status: Former smoker Tobacco Use: Cigarettes Assessment/Plan The patient is an 82 y/o M w/ PMHx: Diabetes mellitus type II, Non-compliant, Overweight who presents to the [facility] ED on 05/15/18 with generalized weakness, lethargy, progressively worsening x 2 weeks with poor compliance with his oral DM regimen. (1) DKA w/ Diabetes mellitus type II: Admission CBC w/ WBC 16.9, Hgb 17.3, Plts 269 with L shift, BMP w/ Na 135, K 5.3, Chl 96, CO2 9, AG 30, BUN/Cr 59/2.41, gluocse 649, HgbA1c 13.3%. Patient started on an insulin drip. Admitted to the ICU, continued on insulin drip until AG closure this AM, transitioned to SC insulin, will obtain mag and phos levels w/ repletion as needed, nutrition consultation. Encouraged diet and insulin regimen compliance. ICU physician consulted, following. (2) Chest Pain: EKG in ED w/ noted atrial flutter with ? T wave inversion inferior leads, CXR w/ no acute findings, initial trop 0.056. Admitted to ICU as noted, place on a monitored bed to assure no acute myocardial infarction with serial cardiac enzymes and EKGs. Trop trend 0.056-->0.070-->0.077. ECHO ordered, pending. Mag pending. ASA, NG, morphine. (3) Acute kidney injury on Suspected CKD unclear stage: Secondary to acute presentation #1. Admission BUN/Cr 59/2.41, prior baseline creatinine not noted. Will continue to hydrate, hold nephrotoxic medications and trend BMP. 05/16/18 BUN/Cr 50/1.76. FeNa assessment w/ 0.39% consistent with pre-renal presentation given acute #1. May need Nephrology referral outpatient. (4) ? New Onset, Paroxsymal atrial flutter: EKG in ED w/ atrial flutter. Will maintain on telemetry, cardiac enzyme serial set 0.056-->0.070-->0.077, obtain magnesium level, obtain ECHO, obtain TSH level. CHADs scoring moderate risk for age and DM. Would consider this appropriate for anticoagulation start at this time, will initiate renally dosed eliquis. Cardiology consulted, pending. (5) DVT prophylaxis: SCDs, initiate eliquis, renally dosed, discontinue heparin SC chemoprophylaxis. (6) Code Status: FULL. Code Visit Inpatient E&M: 00871 Subs Hosp L3
--- NOTE | 2018-05-16 07:13 | PN_ITS ---
Subjective: Patient notes feeling improved since initial presentation and denies any acute events. Patient anion gap closure x2 now with transition off insulin drip to subcu insulin. Patient currently eating and states this is well tolerated. Patient remains in atrial flutter, asymptomatic. Discussed importance of compliance with diabetic regimen and stated that upon discharge she would need to be restarted on insulin therapy secondary to his elevated A1c. Patient amenable transition out of the ICU given improvement. Patient denies fevers, chills, nausea, emesis, abdominal pain, chest pain or dyspnea. Objective: Physical Examination: General: awake, alert, oriented x 3 and cooperative, seated upright in the ICU bed in no apparent distress, notes feeling improved since initial presentation. Skin: normal color, turgor, no icterus, cyanosis except occasional various staged extremity ecchymoses. HEENT: AT/NC, EOMI, PERRLA, mildly dry MM. Lungs: CTA bilaterally, moderate effort, mild decrease BL bases, no rales, ronchi or wheezing. Heart: Regular, currently rate controlled; no gallop, rub audible. Abdomen: soft, NTTP, ND, normal BS. Extremities: no cyanosis, clubbing, or edema. Neurological: patient awake, alert, oriented x 3; cognitive function intact; pupils equally reactive to light and accomodation; cranial nerves II-XII grossly normal, moving all 4 extremities, no focal deficits, strength moderately to severely globally decreased secondary to acute presentation. Psychiatric: affect appears fatigued, no acute evidence of depressive or anxiety feelings. Vitals/I&O's: Vital Signs Temp Pulse Resp BP Pulse Ox 97 F L 71 19 H 125/50 H 98 05/16/18 04:00 05/16/18 06:00 05/16/18 06:00 05/16/18 06:00 05/16/18 06:00 Oxygen Flow Rate (L/min) 2 Oxygen Delivery Method Nasal Cannula Weight: 186 lb 15.232 oz Body Mass Index (BMI) 26.2 Finger Stick Blood Glucose 105 Intake and Output for Last 24 Hours 05/14/18 05/15/18 05/16/18 23:59 23:59 23:59 Intake Total 2404 / 2404 2060.6 / 2060.6 Output Total 300 / 300 550 / 550 Balance 2104 / 2104 1510.6 / 1510.6 Laboratory Results 05/15/18 11:50: WBC 16.9 H, RBC 5.62, Hgb 17.3 H, Hct 51.8, MCV 92.2, MCH 30.8, MCHC 33.4, RDW 14.0, RDW Differential 46.8 H, Plt Count 269, MPV 11.4, Immature Gran % (Auto) 0.400, Neut % (Auto) 92.4 H, Lymph % (Auto) 4.1 L, Star[place] % (Auto) 3.0, Eos % (Auto) 0.0, Baso % (Auto) 0.1, Absolute Neuts (auto) 15.6 H, Absolute Lymphs (auto) 0.70 L, Total Counted Not Reportable 05/15/18 11:50: Sodium 135 L, Potassium 5.3 H, Chloride 96 L, Carbon Dioxide 9.0 L*, Anion Gap 30 H, BUN 59 H, Creatinine 2.41 H, Estim Creat Clear Calc 25.60, Est GFR (MDRD) Af Amer 33 L, Est GFR (MDRD) Non-Af 28 L, BUN/Creatinine Ratio 24.5 H, Glucose 649 H*, Calcium 9.0 05/15/18 11:50: Acetone Level MODERATE H 05/15/18 11:50: Troponin I 0.056 H 05/15/18 16:34: POC Glucose 473 H* 05/15/18 17:22: POC Glucose 390 H 05/15/18 17:58: POC Glucose 364 H 05/15/18 18:00: Hemoglobin A1c 13.3 H 05/15/18 18:00: Sodium 143, Potassium 4.4, Chloride 106, Carbon Dioxide 12.0 L, Anion Gap 25 H, BUN 60 H, Creatinine 2.25 H, Estim Creat Clear Calc 26.59, Est GFR (MDRD) Af Amer 36 L, Est GFR (MDRD) Non-Af 30 L, BUN/Creatinine Ratio 26.7 H , Glucose 311 H, Calcium 8.2 L 05/15/18 19:00: POC Glucose 277 H 05/15/18 19:35: Troponin I 0.070 H 05/15/18 20:03: POC Glucose 222 H 05/15/18 21:09: POC Glucose 180 H 05/15/18 21:20: Urine Color Yellow, Urine Clarity Clear, Urine pH 5.0, Ur Specific [place] 1.020, Urine Protein 30 H, Urine Glucose (UA) 1000 H, Urine Ketones 150 H, Urine Occult Blood 150 H, Urine Nitrite Negative, Urine Bilirubin Negative, Urine Urobilinogen 1 H, Ur Leukocyte Esterase 25 H, Urine RBC 0-5 SEEN, Urine WBC 5-10 SEEN, Ur Squamous Epith Cells 0-5 SEEN, Urine Bacteria 0 SEEN, Hyaline Casts 0-5 SEEN, Urine Mucus 0 SEEN 05/15/18 21:20: Urine Creatinine 68.20 05/15/18 21:20: Ur Random Sodium 20 05/15/18 22:00: POC Glucose 201 H 05/15/18 22:10: Sodium 143, Potassium 4.2, Chloride 109 H, Carbon Dioxide 17.0 L , Anion Gap 17 H, BUN 59 H, Creatinine 1.91 H, Estim Creat Clear Calc 31.32, Est GFR (MDRD) Af Amer 44 L, Est GFR (MDRD) Non-Af 36 L, BUN/Creatinine Ratio 30.9 H , Glucose 221 H, Calcium 7.9 L 05/15/18 22:10: Troponin I 0.077 H 05/15/18 23:00: POC Glucose 190 H 05/16/18 00:00: POC Glucose 202 H 05/16/18 01:04: POC Glucose 201 H 05/16/18 02:00: Sodium 145, Potassium 3.7, Chloride 112 H, Carbon Dioxide 23.0, Anion Gap 10, BUN 54 H, Creatinine 1.83 H, Estim Creat Clear Calc 32.69, Est GFR (MDRD) Af Amer 46 L, Est GFR (MDRD) Non-Af 38 L, BUN/Creatinine Ratio 29.5 H, Glucose 189 H, Calcium 8.1 L 05/16/18 02:03: POC Glucose 158 H 05/16/18 02:59: POC Glucose 163 H 05/16/18 04:04: POC Glucose 117 H 05/16/18 05:03: POC Glucose 94 05/16/18 06:05: WBC 15.1 H, RBC 5.04, Hgb 15.1, Hct 43.4, MCV 86.1, MCH 30.0, MCHC 34.8, RDW 13.6, RDW Differential 42.1, Plt Count 179, MPV 10.9, Immature Gran % (Auto) 0.100, Neut % (Auto) 88.5 H, Lymph % (Auto) 5.4 L, Starke % (Auto) 5.8, Eos % (Auto) 0.1, Baso % (Auto) 0.1, Absolute Neuts (auto) 13.4 H, Absolute Lymphs (auto) 0.81 L, Total Counted Not Reportable 05/16/18 06:05: Sodium 147 H, Potassium 3.8, Chloride 113 H, Carbon Dioxide 24.0, Anion Gap 10, BUN 50 H, Creatinine 1.76 H, Estim Creat Clear Calc 33.99, Est GFR (MDRD) Af Amer 48 L, Est GFR (MDRD) Non-Af 40 L, BUN/Creatinine Ratio 28.4 H, Glucose 102, Calcium 8.2 L Current Medications Dextrose (D50w Syringe) 0 gm IV X1 PRN; Protocol PRN Reason: HYPOGLYCEMIA Heparin Sodium (Porcine) (Heparin Na) 5,000 unit SC Q8 [facility] Last Admin: 05/16/18 05:11 Dose: 5,000 unit Sodium Chloride () 250 mls @ 15 mls/hr IV .[id number] PRN PRN Reason: SALINE FLUSH Sodium Chloride () 250 mls @ 15 mls/hr IV .[id number] PRN PRN Reason: SALINE FLUSH Dextrose/Sodium Chloride () 1,000 mls @ 150 mls/hr IV .Q6H40M [facility] Last Admin: 05/16/18 04:02 Dose: 150 mls/hr Influenza Virus Vaccine Quadrival (Fluarix/Fluzone) 0.5 ml IM .ONCE ONE Stop: 05/16/18 10:01 Insulin Glargine (Lantus (Bkc)) 15 units SC BID MEDINA Insulin Human Lispro (Humalog Kwikpen (Bkc)) 0 unit SC ACHS [facility]; Protocol Magnesium Hydroxide (Milk Of Magnesia) 30 ml PO DAILY PRN PRN PRN Reason: Constipation Sodium Chloride () 5 - 15 ml IV UD PRN PRN Reason: SALINE FLUSH Last Admin: 05/15/18 22:06 Dose: 15 ml Medical Necessity - Tobacco Use Smoking Status: Former smoker Tobacco Use: Cigarettes Assessment/Plan The patient is an 82 y/o M w/ PMHx: Diabetes mellitus type II, Non-compliant, Overweight who presents to the [facility] ED on 05/15/18 with generalized weakness, lethargy, progressively worsening x 2 weeks with poor compliance with his oral DM regimen. (1) DKA w/ Diabetes mellitus type II: Admission CBC w/ WBC 16.9, Hgb 17.3, Plts 269 with L shift, BMP w/ Na 135, K 5.3, Chl 96, CO2 9, AG 30, BUN/Cr 59/2.41, gluocse 649, HgbA1c 13.3%. Patient started on an insulin drip. Admitted to the ICU, continued on insulin drip until AG closure this AM, transitioned to SC insulin, will obtain mag and phos levels w/ repletion as needed, nutrition consultation. Encouraged diet and insulin regimen compliance. ICU physician consulted, following. (2) Chest Pain: EKG in ED w/ noted atrial flutter with ? T wave inversion inferior leads, CXR w/ no acute findings, initial trop 0.056. Admitted to ICU as noted, place on a monitored bed to assure no acute myocardial infarction with serial cardiac enzymes and EKGs. Trop trend 0.056-->0.070-->0.077. ECHO ordered, pending. Mag pending. ASA, NG, morphine. (3) Acute kidney injury on Suspected CKD unclear stage: Secondary to acute presentation #1. Admission BUN/Cr 59/2.41, prior baseline creatinine not noted. Will continue to hydrate, hold nephrotoxic medications and trend BMP. 05/16/18 BUN/Cr 50/1.76. FeNa assessment w/ 0.39% consistent with pre-renal presentation given acute #1. May need Nephrology referral outpatient. (4) ? New Onset, Paroxsymal atrial flutter: EKG in ED w/ atrial flutter. Will maintain on telemetry, cardiac enzyme serial set 0.056-->0.070-->0.077, obtain magnesium level, obtain ECHO, obtain TSH level. CHADs scoring moderate risk for age and DM. Would consider this appropriate for anticoagulation start at this time, will initiate renally dosed eliquis. Cardiology consulted, pending. (5) DVT prophylaxis: SCDs, initiate eliquis, renally dosed, discontinue heparin SC chemoprophylaxis. (6) Code Status: FULL. Code Visit Inpatient E&M: 59770 Subs Hosp L3
[2018-05-16 07:33] LABS: Magnesium 2.3 mg/dL (1.6-2.6); Phosphorus 1.6 mg/dL (2.5-4.9)
[2018-05-16 07:41] LABS: Bedside Glucose 105 mg/dL (70-110)
[2018-05-16 07:41] LABS: Bedside Glucose 92 mg/dL (70-110)
[2018-05-16 07:41] LABS: Bedside Glucose 82 mg/dL (70-110)
--- NOTE | 2018-05-16 08:00 | ECHOD_ITS ---
Reason For Study: Afib, Aflutter Procedure This was a 2D Doppler, Color Flow transthoracic echocardiogram. Exam performed portable in patient room. Left Ventricle Normal LV size. Severe concentric left ventricular hypertrophy. Left ventricular systolic function is normal. The estimated ejection fraction is 65 %. Unable to assess diastolic dysfunction due to arrhythmia. No regional wall motion abnormalities noted. Right Ventricle Normal RV size. Normal systolic function. Atria Normal left atrium. Normal right atrium. Patent foramen ovale. Mitral Valve Normal mitral valve. Tricuspid Valve Normal tricuspid valve. Aortic Valve Normal aortic valve. Trisinus/trileaflet aortic valve. Pulmonic Valve Normal pulmonic valve. Great Vessels Normal aortic root. The pulmonary artery is normal size. Normal inferior vena cava. Pericardium/Pleural No pericardial effusion. Medication Performed a rapid injection of agitated mix of 9 cc saline and 1cc air to assess for atrial septal defect. MMode/2D Measurements & Calculations LVIDd: 3.6 cm IVSd: 1.8 cm Ao root diam: 3.7 cm LVIDs: 1.9 cm LVPWd: 1.5 cm RVDd: 3.3 cm FS: 48.4 % LAV(MOD-bp): 52.7 ml LVAd ap4: 26.4 cm2 SV(MOD-sp4): 54.9 ml LAV(MOD-bp) Indexed: 26.0 ml/m2 EDV(MOD-sp4): 70.7 ml LAV(MOD-sp2): 65.5 ml EDV(sp4-el): 74.0 ml LAV(MOD-sp4): 40.9 ml LVAs ap4: 10.7 cm2 ESV(MOD-sp4): 15.9 ml ESV(sp4-el): 15.9 ml EF(MOD-sp4): 77.6 % EF(sp4-el): 78.5 % SV(sp4-el): 58.1 ml LA A4 area: 16.6 cm2 LA dimension(2D): 3.5 cm RA A4 area: 15.2 cm2 Doppler Measurements & Calculations MV E max christina: 92.0 cm/sec Ao V2 max: 174.4 cm/sec LV V1 max: 123.5 cm/sec Ao max P.2 mmHg LV V1 max P.1 mmHg Ao V2 mean: 138.2 cm/sec Ao mean P.3 mmHg Ao V2 VTI: 29.5 cm PA V2 max: 162.4 cm/sec TR max christina: 298.1 cm/sec PA V2 mean: 123.3 cm/sec TR max P.5 mmHg PA V2 VTI: 26.0 cm Interpretation Summary Normal LV size. Severe concentric left ventricular hypertrophy. Left ventricular systolic function is normal. The estimated ejection fraction is 65 %. Unable to assess diastolic dysfunction due to arrhythmia. Patent foramen ovale. Ordering Physician: Vy Qiu Referring Physician: Elana Ambrosio Performed By: Nicki Moore RDCS, RVT
[2018-05-16 09:10] LABS: Thyroid Stim Hormone (TSH) 2.44 uIU/mL (0.358-3.74)
[2018-05-16] MEDS: APIXABAN 2.5 MG TABLET PO ×2 (09:20→21:17)
--- NOTE | 2018-05-16 11:00 | CASEMGMT ---
SONY LESLIE INITIAL ASSESSMENT D/C PLAN: Home w/HHC vs. Out-pt therapy. Face to Face with patient for initial transition planning/care coordination assessment. SONY LESLIE introduced self and role at [facility]. Pt sitting up in recliner chair. Awake/alert/oriented. Willing to participate in assessment and all questions answered appropriately. Care providers, pharmacy, and demographics verified. PCP: Elana Ambrosio Specialists: [facility] no specialists. Preferred Pharmacy: [facility] [place], [place] Insurance: [employer] [facility] Prescription Benefit: Yes Living Will/HPOA: States does not have LW or HCPOA and is not sure on what these forms are. Discussed these forms with him and given AD info packet. Pt states he would like to talk with Procurement Technician. LILLY Gauthier, made aware. LNOK: Daughters, Shantell and Aleyda. Living Arrangements: Lives alone in 2-story apartment. States has 7 steps to enter. Main floor has living area and kitchen. 7 steps to go to 2nd floor, where there are 2 bedrooms and a bathroom. States there is a handrail on the stairs leading up to the 2nd floor. Pt states he has a neighbor that stops by to check on him every morning. States daughters live about 30 min away from him. Pt states up until about 3 weeks ago, he was very independent, stating he did his own ADL's, home mgmt tasks, meals, grocery shopping, took laundry to laundromat, etc. States d/t increased weakness over the past few weeks, these tasks have become more challenging to do. Pt states he could use some help in the home and is not sure if he would qualify for assistance. Pt is agreeable to talking with LILLY re: eligibility for assistance such as [id number] or aide services. LILLY Gauthier, also made aware of this. Transportation: Pt still drives. States his daughters can help with transportation if he would need. Informed pt of [facility] and pt given Transportation Services info sheet w/hours and phone number. DME: Pt states he has a cane and a walker but does not use them. Has a grab bar by the commode. States does not feel that he needs any additional medical equipment. Declines wanting information on Medical Alert button. HHC/SNF: Pt states has never used HHC services or been to a SNF. Is agreeable to HHC or going to Out-pt therapy, depending on strength/ability to get there. Pt states he has no preference of HHC agency. CM to follow for any further discharge planning needs that may arise. Joleen ALFONSON RN CM
[2018-05-16] MEDS: Metoprolol Tartrate 25 MG Tablet PO (11:03)
[2018-05-16 11:36] LABS: Bedside Glucose 148 mg/dL (70-110)
--- NOTE | 2018-05-16 13:01 | CASEMGMT ---
SW received referral from RN MARIAMA. Regarding advance directives and possible extra assistance at home. Patient was eating lunch. SW did talk with him about POA and LW. SW left documents with him and if he decides he would like to do them he can juts ask for SW. SW asked patient if he feels he would be okay going home at d/c. He said he doesn't really know. SW asked if he would be agreeable to going to a nursing facility for rehab if that is what is recommended. He said he didn't really know. LILLY told him SW will follow and assist with d/c planning. Plan: undetermined at this time Disha SNOWDEN CHUTE WORKER
--- NOTE | 2018-05-16 13:08 | PCM.CONS.C ---
Reason for Consult Date of Consultation: 05/16/18 History of Present Illness: The patient is a 82 year old M with a PMH of diabetes mellitus, noncompliant with his metformin. He was admitted through the ED on 05/15/2018 with a complaint of generalized weakness and lethargy for 2 weeks. He said he had just not been feeling well and had progressively worsened and so he decided coming to the ED today. Patient has been diabetic for several years and states he was started on insulin which was stopped and he was switched to oral metformin. He admits to not being very compliant with his metformin and does not remember the last time he took it. He denied any fever chills, any cough or chest pain, shortness of breath, any abdominal pain, any diarrhea vomiting. Review of systems otherwise negative. For himself very well. In the ED, vitals were essentially stable he was saturating 96% on 2 L of oxygen. Chemistry showed sodium of 135 with potassium of 5.3 and bicarb of 9 and anion gap of 30. Creatinine was 2.41 with no baseline in EMR and glucose was 649. CBC showed white cell count of 16.9 hemoglobin of 17.3.CXR showed no acute cardiopulmonary process, and EKG showed atrial flutter,. Cardiology was called to assist with the management of the atrial flutter. He denies any chest pain or shortness of breath or paroxysmal nocturnal dyspnea or pedal edema. [] Past Medical History Allergies/Adverse Reactions: Allergies No Known Allergies Allergy (Verified 05/15/18 11:12) Home Medications: Ambulatory Orders Medication Instructions Recorded Aspirin 162.5 mg PO DAILY@0800 05/15/18 Metformin HCl [Glucophage] 1,000 mg PO BIDCM 05/15/18 Surgical History: no surgical history Psychiatric History: No pertinent psych hx - *Family History Sibling History Items: Cancer Maternal History Items: High Cholesterol, Heart Disease Paternal History Items: Hypertension Lives: Alone Smoking Status: Former smoker Tobacco Use: Cigarettes Alcohol: None Drugs: None Review of Systems - Review of Systems General: Reports: Fatigue, Malaise. Denies: Fever, Night Sweats HEENT: Denies: Vision Change Cardiovascular: Denies: Chest Discomfort, Shortness of Breath, Orthopnea, PND, Peripheral Edema, Palpitations, Lightheadedness, Dizziness, Near Syncope, Syncope Respiratory: Denies: Cough, Sputum Production, Hemoptysis Gastrointestinal: Denies: Indigestion, Hematemesis, Hematochezia, Melena Genitourinary: Denies: Dysuria, Hematuria Muscoloskeletal: Denies: Myalgias Skin: Denies: Rash Neurological: Denies: Dizziness Psychiatric: Denies: Anxiety Endocrine: Denies: Unexplained Weight Loss Hematologic/ Lymphatic: Denies: Anemia Subjectve: Pleasant elderly man in no distress Objective: Vital Signs Temp Pulse Resp BP Pulse Ox 97.4 F L 79 18 121/51 H 97 05/16/18 09:53 05/16/18 11:34 05/16/18 09:53 05/16/18 09:53 05/16/18 09:53 Oxygen Flow Rate (L/min) 2 Oxygen Delivery Method Room Air Weight: 186 lb 15.232 oz Body Mass Index (BMI) 26.2 Finger Stick Blood Glucose 92 Intake and Output for Last 24 Hours 05/14/18 05/15/18 05/16/18 23:59 23:59 23:59 Intake Total 2404 / 2404 2180.6 / 2180.6 Output Total 300 / 300 550 / 550 Balance 2104 / 2104 1630.6 / 1630.6 General: Awake, Alert, Oriented x 3 HEENT: PERRL, EOMI, Sclera Non Icteric Neck: Supple, Good ROM, No Lymph Node Enlargement Lungs: Clear to auscultation Cardiovascular: Irregular Rhythm, Normal S1, Normal S2, No Murmurs, No Rubs, No Gallops Vascular: No Carotid Bruits, Normal Femoral Pulses, Normal Radial Pulses, Normal Dorsalis Pedal Pulse, Normal Posterior Tibial Pulses Abdomen: Bowel Sounds Present, Soft, Non Tender, No HSM, No Organomegaly Extremities: No Cyanosis, No Clubbing, No edema Skin: No Rashes Lymphatic: No Lymph Node Enlargement Neurological: No Focal Motor or Sensory Deficit 05/15/18 11:50: Troponin I 0.056 H 05/15/18 18:00: Hemoglobin A1c 13.3 H 05/15/18 18:00: Sodium 143, Potassium 4.4, Chloride 106, Carbon Dioxide 12.0 L, Anion Gap 25 H, BUN 60 H, Creatinine 2.25 H, Est GFR (MDRD) Af Amer 36 L, Est GFR (MDRD) Non-Af 30 L, BUN/Creatinine Ratio 26.7 H, Glucose 311 H, Calcium 8.2 L 05/15/18 19:35: Troponin I 0.070 H 05/15/18 21:20: Urine Color Yellow, Urine Clarity Clear, Urine pH 5.0, Ur Specific [place] 1.020, Urine Protein 30 H, Urine Glucose (UA) 1000 H, Urine Ketones 150 H, Urine Occult Blood 150 H, Urine Nitrite Negative, Urine Bilirubin Negative, Urine Urobilinogen 1 H, Ur Leukocyte Esterase 25 H, Urine RBC 0-5 SEEN, Urine WBC 5-10 SEEN 05/15/18 22:10: Sodium 143, Potassium 4.2, Chloride 109 H, Carbon Dioxide 17.0 L, Anion Gap 17 H, BUN 59 H, Creatinine 1.91 H, Est GFR (MDRD) Af Amer 44 L, Est GFR (MDRD) Non-Af 36 L, BUN/Creatinine Ratio 30.9 H, Glucose 221 H, Calcium 7.9 L 05/15/18 22:10: Troponin I 0.077 H 05/16/18 02:00: Sodium 145, Potassium 3.7, Chloride 112 H, Carbon Dioxide 23.0, Anion Gap 10, BUN 54 H, Creatinine 1.83 H, Est GFR (MDRD) Af Amer 46 L, Est GFR (MDRD) Non-Af 38 L, BUN/Creatinine Ratio 29.5 H, Glucose 189 H, Calcium 8.1 L 05/16/18 06:05: WBC 15.1 H, RBC 5.04, Hgb 15.1, Hct 43.4, MCV 86.1, MCH 30.0, MCHC 34.8, RDW 13.6, RDW Differential 42.1, Plt Count 179, MPV 10.9, Immature Gran % (Auto) 0.100, Neut % (Auto) 88.5 H, Lymph % (Auto) 5.4 L, [place] % (Auto) 5.8, Eos % (Auto) 0.1, Baso % (Auto) 0.1, Absolute Neuts (auto) 13.4 H, Total Counted Not Reportable 05/16/18 06:05: Sodium 147 H, Potassium 3.8, Chloride 113 H, Carbon Dioxide 24.0, Anion Gap 10, BUN 50 H, Creatinine 1.76 H, Est GFR (MDRD) Af Amer 48 L, Est GFR (MDRD) Non-Af 40 L, BUN/Creatinine Ratio 28.4 H, Glucose 102, Calcium 8.2 L 05/16/18 06:05: Phosphorus 1.6 L, Magnesium 2.3 Rhythm: EKG: Atrial flutter with a controlled ventricular response rate ECHO: Overall preserved left ventricular systolic function Stress Test: Cardiac Cath: PCI: CT Surgery: Holter monitor: EPS: PPM: CXR: Chest CT Scan: Assessment/Plan 1. Atrial flutter Patient presents with atrial flutter unbeknownst to him. His ventricular response rate is controlled at this particular time, and his ejection fraction by echocardiogram is noted to be normal. I would recommend that we continue anticoagulation as has been started by the hospitalist. 2. Abnormal cardiac enzymes He appears to have mildly elevated troponins which may be secondary to demand ischemia I would recommend that we continue with hydration We may consider a pharmacologic stress test prior to his discharge or as an outpatient. Thank you for allowing me to participate in the care of your patient. Please don't hesitate to call if any issues arise
--- NOTE | 2018-05-16 13:12 | CON.PCM_ITS ---
Reason for Consult Date of Consultation: 05/16/18 History of Present Illness: The patient is a 82 year old M with a PMH of diabetes mellitus, noncompliant with his metformin. He was admitted through the ED on 05/15/2018 with a complaint of generalized weakness and lethargy for 2 weeks. He said he had just not been feeling well and had progressively worsened and so he decided coming to the ED today. Patient has been diabetic for several years and states he was started on insulin which was stopped and he was switched to oral metformin. He admits to not being very compliant with his metformin and does not remember the last time he took it. He denied any fever chills, any cough or chest pain, shortness of breath, any abdominal pain, any diarrhea vomiting. Review of systems otherwise negative. For himself very well. In the ED, vitals were essentially stable he was saturating 96% on 2 L of oxygen. Chemistry showed sodium of 135 with potassium of 5.3 and bicarb of 9 and anion gap of 30. Creatinine was 2.41 with no baseline in EMR and glucose was 649. CBC showed white cell count of 16.9 hemoglobin of 17.3.CXR showed no acute cardiopulmonary process, and EKG showed atrial flutter,. Cardiology was called to assist with the management of the atrial flutter. He denies any chest pain or shortness of breath or paroxysmal nocturnal dyspnea or pedal edema. [] Past Medical History Allergies/Adverse Reactions: Allergies No Known Allergies Allergy (Verified 05/15/18 11:12) Home Medications: Ambulatory Orders Medication Instructions Recorded Aspirin 162.5 mg PO DAILY@0800 05/15/18 Metformin HCl [Glucophage] 1,000 mg PO BIDCM 05/15/18 Surgical History: no surgical history Psychiatric History: No pertinent psych hx - *Family History Sibling History Items: Cancer Maternal History Items: High Cholesterol, Heart Disease Paternal History Items: Hypertension Lives: Alone Smoking Status: Former smoker Tobacco Use: Cigarettes Alcohol: None Drugs: None Review of Systems - Review of Systems General: Reports: Fatigue, Malaise. Denies: Fever, Night Sweats HEENT: Denies: Vision Change Cardiovascular: Denies: Chest Discomfort, Shortness of Breath, Orthopnea, PND, Peripheral Edema, Palpitations, Lightheadedness, Dizziness, Near Syncope, Syncope Respiratory: Denies: Cough, Sputum Production, Hemoptysis Gastrointestinal: Denies: Indigestion, Hematemesis, Hematochezia, Melena Genitourinary: Denies: Dysuria, Hematuria Muscoloskeletal: Denies: Myalgias Skin: Denies: Rash Neurological: Denies: Dizziness Psychiatric: Denies: Anxiety Endocrine: Denies: Unexplained Weight Loss Hematologic/ Lymphatic: Denies: Anemia Subjectve: Pleasant elderly man in no distress Objective: Vital Signs Temp Pulse Resp BP Pulse Ox 97.4 F L 79 18 121/51 H 97 05/16/18 09:53 05/16/18 11:34 05/16/18 09:53 05/16/18 09:53 05/16/18 09:53 Oxygen Flow Rate (L/min) 2 Oxygen Delivery Method Room Air Weight: 186 lb 15.232 oz Body Mass Index (BMI) 26.2 Finger Stick Blood Glucose 92 Intake and Output for Last 24 Hours 05/14/18 05/15/18 05/16/18 23:59 23:59 23:59 Intake Total 2404 / 2404 2180.6 / 2180.6 Output Total 300 / 300 550 / 550 Balance 2104 / 2104 1630.6 / 1630.6 General: Awake, Alert, Oriented x 3 HEENT: PERRL, EOMI, Sclera Non Icteric Neck: Supple, Good ROM, No Lymph Node Enlargement Lungs: Clear to auscultation Cardiovascular: Irregular Rhythm, Normal S1, Normal S2, No Murmurs, No Rubs, No Gallops Vascular: No Carotid Bruits, Normal Femoral Pulses, Normal Radial Pulses, Normal Dorsalis Pedal Pulse, Normal Posterior Tibial Pulses Abdomen: Bowel Sounds Present, Soft, Non Tender, No HSM, No Organomegaly Extremities: No Cyanosis, No Clubbing, No edema Skin: No Rashes Lymphatic: No Lymph Node Enlargement Neurological: No Focal Motor or Sensory Deficit 05/15/18 11:50: Troponin I 0.056 H 05/15/18 18:00: Hemoglobin A1c 13.3 H 05/15/18 18:00: Sodium 143, Potassium 4.4, Chloride 106, Carbon Dioxide 12.0 L, Anion Gap 25 H, BUN 60 H, Creatinine 2.25 H, Est GFR (MDRD) Af Amer 36 L, Est GFR (MDRD) Non-Af 30 L, BUN/Creatinine Ratio 26.7 H, Glucose 311 H, Calcium 8.2 L 05/15/18 19:35: Troponin I 0.070 H 05/15/18 21:20: Urine Color Yellow, Urine Clarity Clear, Urine pH 5.0, Ur Specific [place] 1.020, Urine Protein 30 H, Urine Glucose (UA) 1000 H, Urine Ketones 150 H, Urine Occult Blood 150 H, Urine Nitrite Negative, Urine Bilirubin Negative, Urine Urobilinogen 1 H, Ur Leukocyte Esterase 25 H, Urine RBC 0-5 SEEN, Urine WBC 5-10 SEEN 05/15/18 22:10: Sodium 143, Potassium 4.2, Chloride 109 H, Carbon Dioxide 17.0 L , Anion Gap 17 H, BUN 59 H, Creatinine 1.91 H, Est GFR (MDRD) Af Amer 44 L, Est GFR (MDRD) Non-Af 36 L, BUN/Creatinine Ratio 30.9 H, Glucose 221 H, Calcium 7.9 L 05/15/18 22:10: Troponin I 0.077 H 05/16/18 02:00: Sodium 145, Potassium 3.7, Chloride 112 H, Carbon Dioxide 23.0, Anion Gap 10, BUN 54 H, Creatinine 1.83 H, Est GFR (MDRD) Af Amer 46 L, Est GFR (MDRD) Non-Af 38 L, BUN/Creatinine Ratio 29.5 H, Glucose 189 H, Calcium 8.1 L 05/16/18 06:05: WBC 15.1 H, RBC 5.04, Hgb 15.1, Hct 43.4, MCV 86.1, MCH 30.0, MCHC 34.8, RDW 13.6, RDW Differential 42.1, Plt Count 179, MPV 10.9, Immature Gran % (Auto) 0.100, Neut % (Auto) 88.5 H, Lymph % (Auto) 5.4 L, [place] % (Auto) 5.8, Eos % (Auto) 0.1, Baso % (Auto) 0.1, Absolute Neuts (auto) 13.4 H, Total Counted Not Reportable 05/16/18 06:05: Sodium 147 H, Potassium 3.8, Chloride 113 H, Carbon Dioxide 24.0, Anion Gap 10, BUN 50 H, Creatinine 1.76 H, Est GFR (MDRD) Af Amer 48 L, Est GFR (MDRD) Non-Af 40 L, BUN/Creatinine Ratio 28.4 H, Glucose 102, Calcium 8.2 L 05/16/18 06:05: Phosphorus 1.6 L, Magnesium 2.3 Rhythm: EKG: Atrial flutter with a controlled ventricular response rate ECHO: Overall preserved left ventricular systolic function Stress Test: Cardiac Cath: PCI: CT Surgery: Holter monitor: EPS: PPM: CXR: Chest CT Scan: Assessment/Plan 1. Atrial flutter * Patient presents with atrial flutter unbeknownst to him. His ventricular response rate is controlled at this particular time, and his ejection fraction by echocardiogram is noted to be normal. * I would recommend that we continue anticoagulation as has been started by the hospitalist. * 2. Abnormal cardiac enzymes * He appears to have mildly elevated troponins which may be secondary to demand ischemia * I would recommend that we continue with hydration * We may consider a pharmacologic stress test prior to his discharge or as an outpatient. * * Thank you for allowing me to participate in the care of your patient. Please don't hesitate to call if any issues arise
[2018-05-16] MEDS: Dext 5%-0.45% NS 1,000 ML 75 ML IV (15:33)
[2018-05-16 16:50] LABS: Bedside Glucose 228 mg/dL (70-110)
[2018-05-16] MEDS: Insulin Lispro 100 UNIT/ML INSULN.PEN SC ×2 (16:51→21:14)
[2018-05-16 21:55] LABS: Bedside Glucose 304 mg/dL (70-110)
[2018-05-17] VITALS (13 sets, daily range): BP systolic 106–140; BP diastolic 51–67; PULSE 47–77; RESP 14–18; TEMP 36.6–37.3; O2SAT 94–96
[2018-05-17 06:31] LABS: Absolute Neutrophil Count 7.4 X10^3/uL (2.0-7.7); Basophil# 0.01 X10^3/uL; Basophil% 0.1 % (0-1); Hematocrit 45.5 % (40-54); Hemoglobin 15.4 g/dl (13.0-16.5); Lymphocyte % 3.7 % (19-41); Mean Corp Hgb Conc 33.8 g/gl (32-36); Mean Corpuscular Hgb 29.7 pg (27.0-32.0); Mean Corpuscular Volume 87.7 fL (80-94); Mean Platelet Vol. 11.6 fl (6.2-12.0); Monocyte# 0.46 X10^3/uL; Monocyte% 5.6 % (0-10); Neutrophil # 7.37 X10^3/uL (2.7-7.7); Neutrophil % 90.4 % (47-70); Platelet Count 119 K/mm3 (150-450); RBC Distribution Width CV 13.9 % (11.6-14.6); RBC Distribution Width SD 44.7 fl (35.1-43.9); Red Blood Count 5.19 M/mm3 (4.6-6.2); White Blood Count 8.2 K/mm3 (4.4-11.0)
[2018-05-17 06:34] LABS: Differential Indicated SCAN CRITERIA MET; POSITIVE COUNT NO; POSITIVE DIFFERENTIAL YES; POSITIVE MORPHOLOGY NO
[2018-05-17 06:41] LABS: Anion Gap 10 (5-15); BUN 37 mg/dL (7-18); BUN/Creat Ratio 24.8 RATIO (10-20); Calcium,Total 8.2 mg/dL (8.5-10.1); Chloride 111 mmol/L (98-107); Creatinine, Serum 1.49 mg/dL (0.70-1.30); EST Glomerular Filtration Rate 48 mL/min (>60); Est Glom Filt Rate - Afr Amer 58 mL/min (>60); Estimated Creatinine Clearance 40.15 ml/min; Glucose 271 mg/dL (74-106); Potassium 3.8 mmol/L (3.5-5.1); Sodium Level 145 mmol/L (136-145)
[2018-05-17 06:55] LABS: Bedside Glucose 259 mg/dL (70-110)
[2018-05-17] MEDS: Insulin Lispro 100 UNIT/ML INSULN.PEN SC ×3 (09:45→21:20)
[2018-05-17] MEDS: APIXABAN 2.5 MG TABLET PO ×2 (09:45→21:18)
[2018-05-17] MEDS: Metoprolol Tartrate 25 MG Tablet 12.5 MG PO (09:47)
--- NOTE | 2018-05-17 09:52 | PCM.PN.CARD ---
Subjectve: Patient seen and evaluated. Appears to be doing quite well. Objective: Vital Signs Temp Pulse Resp BP Pulse Ox 97.8 F 76 14 140/60 H 94 05/17/18 03:07 05/17/18 09:47 05/17/18 03:07 05/17/18 03:07 05/17/18 08:07 Oxygen Flow Rate (L/min) 2 Oxygen Delivery Method Room Air Weight: 184 lb 4.903 oz Body Mass Index (BMI) 26.2 Finger Stick Blood Glucose 92 Intake and Output for Last 24 Hours 05/15/18 05/16/18 05/17/18 23:59 23:59 23:59 Intake Total 2404 / 2404 2620.6 / 2620.6 Output Total 300 / 300 1250 / 1250 400 / 400 Balance 2104 / 2104 1370.6 / 1370.6 -400 / -400 General: Awake, Alert, Oriented x 3 HEENT: PERRL, EOMI, Sclera Non Icteric Neck: Supple, Good ROM, No Lymph Node Enlargement Lungs: Clear to auscultation Cardiovascular: Regular Rhythm, Normal S1, Normal S2, No Murmurs, No Rubs, No Gallops Vascular: No Carotid Bruits, Normal Femoral Pulses, Normal Radial Pulses, Normal Dorsalis Pedal Pulse, Normal Posterior Tibial Pulses Abdomen: Bowel Sounds Present, Soft, Non Tender, No HSM, No Organomegaly Extremities: No Cyanosis, No Clubbing, No edema Lymphatic: No Lymph Node Enlargement Neurological: No Focal Motor or Sensory Deficit Psych/Mental Status: Appropriate 05/17/18 05:12: WBC 8.2, RBC 5.19, Hgb 15.4, Hct 45.5, MCV 87.7, MCH 29.7, MCHC 33.8, RDW 13.9, RDW Differential 44.7 H, Plt Count 119 L, MPV 11.6, Immature Gran % (Auto) 0.200, Neut % (Auto) 90.4 H, Lymph % (Auto) 3.7 L, [place] % (Auto) 5.6, Eos % (Auto) 0.0, Baso % (Auto) 0.1, Absolute Neuts (auto) 7.4, Total Counted Not Reportable 05/17/18 05:12: Sodium 145, Potassium 3.8, Chloride 111 H, Carbon Dioxide 24.0, Anion Gap 10, BUN 37 H, Creatinine 1.49 H, Est GFR (MDRD) Af Amer 58 L, Est GFR (MDRD) Non-Af 48 L, BUN/Creatinine Ratio 24.8 H, Glucose 271 H, Calcium 8.2 L Rhythm: EKG: ECHO: Stress Test: Cardiac Cath: PCI: CT Surgery: Holter monitor: EPS: PPM: CXR: Chest CT Scan: Medical Necessity - Tobacco Use Smoking Status: Former smoker Tobacco Use: Cigarettes Assessment/Plan 1. Atrial flutter Patient presents with atrial flutter unbeknownst to him. His ventricular response rate is controlled at this particular time, and his ejection fraction by echocardiogram is noted to be normal. I would recommend that we continue anticoagulation as has been started by the hospitalist. 2. Abnormal cardiac enzymes He appears to have mildly elevated troponins which may be secondary to demand ischemia I would recommend that we continue with hydration We may consider a pharmacologic stress test prior as an outpatient. He appears to be stable enough at this time on the current medical therapy. Thank you for allowing me to participate in the care of your patient. Please don't hesitate to call if any issues arise
--- NOTE | 2018-05-17 09:55 | PN.CARD_ITS ---
Subjectve: Patient seen and evaluated. Appears to be doing quite well. Objective: Vital Signs Temp Pulse Resp BP Pulse Ox 97.8 F 76 14 140/60 H 94 05/17/18 03:07 05/17/18 09:47 05/17/18 03:07 05/17/18 03:07 05/17/18 08:07 Oxygen Flow Rate (L/min) 2 Oxygen Delivery Method Room Air Weight: 184 lb 4.903 oz Body Mass Index (BMI) 26.2 Finger Stick Blood Glucose 92 Intake and Output for Last 24 Hours 05/15/18 05/16/18 05/17/18 23:59 23:59 23:59 Intake Total 2404 / 2404 2620.6 / 2620.6 Output Total 300 / 300 1250 / 1250 400 / 400 Balance 2104 / 2104 1370.6 / 1370.6 -400 / -400 General: Awake, Alert, Oriented x 3 HEENT: PERRL, EOMI, Sclera Non Icteric Neck: Supple, Good ROM, No Lymph Node Enlargement Lungs: Clear to auscultation Cardiovascular: Regular Rhythm, Normal S1, Normal S2, No Murmurs, No Rubs, No Gallops Vascular: No Carotid Bruits, Normal Femoral Pulses, Normal Radial Pulses, Normal Dorsalis Pedal Pulse, Normal Posterior Tibial Pulses Abdomen: Bowel Sounds Present, Soft, Non Tender, No HSM, No Organomegaly Extremities: No Cyanosis, No Clubbing, No edema Lymphatic: No Lymph Node Enlargement Neurological: No Focal Motor or Sensory Deficit Psych/Mental Status: Appropriate 05/17/18 05:12: WBC 8.2, RBC 5.19, Hgb 15.4, Hct 45.5, MCV 87.7, MCH 29.7, MCHC 33.8, RDW 13.9, RDW Differential 44.7 H, Plt Count 119 L, MPV 11.6, Immature Gran % (Auto) 0.200, Neut % (Auto) 90.4 H, Lymph % (Auto) 3.7 L, [place] % (Auto) 5.6, Eos % (Auto) 0.0, Baso % (Auto) 0.1, Absolute Neuts (auto) 7.4, Total Counted Not Reportable 05/17/18 05:12: Sodium 145, Potassium 3.8, Chloride 111 H, Carbon Dioxide 24.0, Anion Gap 10, BUN 37 H, Creatinine 1.49 H, Est GFR (MDRD) Af Amer 58 L, Est GFR (MDRD) Non-Af 48 L, BUN/Creatinine Ratio 24.8 H, Glucose 271 H, Calcium 8.2 L Rhythm: EKG: ECHO: Stress Test: Cardiac Cath: PCI: CT Surgery: Holter monitor: EPS: PPM: CXR: Chest CT Scan: Medical Necessity - Tobacco Use Smoking Status: Former smoker Tobacco Use: Cigarettes Assessment/Plan 1. Atrial flutter * Patient presents with atrial flutter unbeknownst to him. His ventricular response rate is controlled at this particular time, and his ejection fraction by echocardiogram is noted to be normal. * I would recommend that we continue anticoagulation as has been started by the hospitalist. * 2. Abnormal cardiac enzymes * He appears to have mildly elevated troponins which may be secondary to demand ischemia * I would recommend that we continue with hydration * We may consider a pharmacologic stress test prior as an outpatient. * He appears to be stable enough at this time on the current medical therapy. * Thank you for allowing me to participate in the care of your patient. Please don't hesitate to call if any issues arise
--- NOTE | 2018-05-17 10:46 | PCM.PN.HOSP ---
Subjective: Patient with no acute events overnight per self and per nursing report. Patient still remains mildly weak and does need assist for most recent physical therapy notes. Discussed patient status and given debility, living alone he will consider care home facility placement temporarily if recommended today by therapies. Discussed patient with cardiology and plan for reevaluation for cardiac stress testing outpatient. Plan continuation of rate control, anti-coagulation upon discharge. Encourage patient to continue compliance with current insulin regimen and potential alterations pending continued blood sugar trending outpatient when appropriate for discharge. Patient denies fevers, chills, nausea, emesis, abdominal pain, chest pain or dyspnea. Objective: Physical Examination: General: awake, alert, oriented x 3 and cooperative, seated upright in bed in no apparent distress. Skin: normal color, turgor, no icterus, cyanosis except occasional various staged extremity ecchymoses. HEENT: AT/NC, EOMI, PERRLA, improved MMM. Lungs: CTA bilaterally, moderate effort, mild decrease BL bases, no rales, ronchi or wheezing. Heart: Rate controlled; no gallop, rub audible. Abdomen: soft, NTTP, ND, normal BS. Extremities: no cyanosis, clubbing, or edema. Neurological: patient awake, alert, oriented x 3; cognitive function intact; pupils equally reactive to light and accomodation; cranial nerves II-XII grossly normal, moving all 4 extremities, no focal deficits, strength improving, moderately globally decreased secondary to acute presentation. Psychiatric: affect appears improved, normal, no acute evidence of depressive or anxiety feelings. Vitals/I&O's: Vital Signs Temp Pulse Resp BP Pulse Ox 97.9 F 76 16 139/67 H 94 05/17/18 09:05 05/17/18 09:47 05/17/18 09:05 05/17/18 09:05 05/17/18 09:05 Oxygen Flow Rate (L/min) 2 Oxygen Delivery Method Room Air Weight: 184 lb 4.903 oz Body Mass Index (BMI) 26.2 Finger Stick Blood Glucose 92 Intake and Output for Last 24 Hours 05/15/18 05/16/18 05/17/18 23:59 23:59 23:59 Intake Total 2404 / 2404 2620.6 / 2620.6 Output Total 300 / 300 1250 / 1250 400 / 400 Balance 2104 / 2104 1370.6 / 1370.6 -400 / -400 Laboratory Results 05/16/18 11:23: POC Glucose 148 H 05/16/18 16:43: POC Glucose 228 H 05/16/18 21:13: POC Glucose 304 H 05/17/18 05:12: WBC 8.2, RBC 5.19, Hgb 15.4, Hct 45.5, MCV 87.7, MCH 29.7, MCHC 33.8, RDW 13.9, RDW Differential 44.7 H, Plt Count 119 L, MPV 11.6, Immature Gran % (Auto) 0.200, Neut % (Auto) 90.4 H, Lymph % (Auto) 3.7 L, [place] % (Auto) 5.6, Eos % (Auto) 0.0, Baso % (Auto) 0.1, Absolute Neuts (auto) 7.4, Absolute Lymphs (auto) 0.30 L, Total Counted Not Reportable 05/17/18 05:12: Sodium 145, Potassium 3.8, Chloride 111 H, Carbon Dioxide 24.0, Anion Gap 10, BUN 37 H, Creatinine 1.49 H, Estim Creat Clear Calc 40.15, Est GFR (MDRD) Af Amer 58 L, Est GFR (MDRD) Non-Af 48 L, BUN/Creatinine Ratio 24.8 H, Glucose 271 H, Calcium 8.2 L 05/17/18 06:53: POC Glucose 259 H Current Medications Apixaban (Eliquis) 2.5 mg PO BID [facility] Last Admin: 05/17/18 09:45 Dose: 2.5 mg Dextrose (D50w Syringe) 0 gm IV X1 PRN; Protocol PRN Reason: HYPOGLYCEMIA Sodium Chloride () 250 mls @ 15 mls/hr IV .[id number] PRN PRN Reason: SALINE FLUSH Sodium Chloride () 250 mls @ 15 mls/hr IV .[id number] PRN PRN Reason: SALINE FLUSH Sodium Chloride () 1,000 mls @ 100 mls/hr IV .Q10H [facility] Insulin Glargine (Lantus (Bk)) 15 units SC BID [facility] Last Admin: 05/17/18 09:46 Dose: 15 u Insulin Human Lispro (Humalog Kwikpen ([facility])) 0 unit SC ACHS [facility]; Protocol Last Admin: 05/17/18 09:45 Dose: 3 u Magnesium Hydroxide (Milk Of Magnesia) 30 ml PO DAILY PRN PRN PRN Reason: Constipation Metoprolol Tartrate (Lopressor (Beta Magda)) 12.5 mg PO BID [facility] Last Admin: 05/17/18 09:47 Dose: 12.5 mg Nutritional Formula (Lactose Free) (Glucerna Shake) 120 ml PO 4X/DAY [facility] Last Admin: 05/17/18 09:46 Dose: Not Given Sodium Chloride () 5 - 15 ml IV UD PRN PRN Reason: SALINE FLUSH Last Admin: 05/15/18 22:06 Dose: 15 ml Medical Necessity - Tobacco Use Smoking Status: Former smoker Tobacco Use: Cigarettes Assessment/Plan The patient is an 82 y/o M w/ PMHx: Diabetes mellitus type II, Non-compliant, Overweight who presents to the [facility] ED on 05/15/18 with generalized weakness, lethargy, progressively worsening x 2 weeks with poor compliance with his oral DM regimen. (1) DKA w/ Diabetes mellitus type II: Admission CBC w/ WBC 16.9, Hgb 17.3, Plts 269 with L shift, BMP w/ Na 135, K 5.3, Chl 96, CO2 9, AG 30, BUN/Cr 59/2.41, gluocse 649, HgbA1c 13.3%. Patient started on an insulin drip. Admitted to the ICU, continued on insulin drip until AG closure this AM, transitioned to SC insulin, will obtain mag and phos levels w/ repletion as needed, nutrition consultation. Encouraged diet and insulin regimen compliance. ICU physician consulted, following. (2) Chest Pain: EKG in ED w/ noted atrial flutter with ? T wave inversion inferior leads, CXR w/ no acute findings, initial trop 0.056. Admitted to ICU initially, transitioned to PCU following DKA resolution, maintained on a monitored bed to assure no acute myocardial infarction with serial cardiac enzymes and EKGs. Trop trend 0.056-->0.070-->0.077. ECHO with normal LV size, severe concentric LVH, LV systolic function normal, EF 65%, unable to assess diastolic dysfunction due to arrhythmia, patent foramen ovale. Mag 2. ASA, NG, morphine. Cardiology consulted, planned stress testing planned outpatient. (3) Acute kidney injury on Suspected CKD unclear stage: Secondary to acute presentation #1. Admission BUN/Cr 59/2.41, prior baseline creatinine not noted. Will continue to hydrate, hold nephrotoxic medications and trend BMP. 05/17/18 BUN/Cr 37/1.49. FeNa assessment w/ 0.39% consistent with pre-renal presentation given acute #1. Will need Nephrology referral outpatient. (4) ? New Onset, Paroxsymal atrial flutter: EKG in ED w/ atrial flutter. ICU to PCU with DKA resolution. Rate controlled. Maintain on telemetry, cardiac enzyme serial set 0.056-->0.070-->0.077, magnesium level normal, ECHO with normal LV size, severe concentric LVH, LV systolic function normal, EF 65%, unable to assess diastolic dysfunction due to arrhythmia, patent foramen ovale. TSH level normal. CHADs scoring moderate risk for age and DM. Would consider this appropriate for anticoagulation start at this time, initiated on renally dosed eliquis. Cardiology consulted, amenable to current regimen, interventions. (5) DVT prophylaxis: SCDs, initiated eliquis, renally dosed. (6) Code Status: FULL. (7) Disposition: PT, OT pending repeat assessment 05/17/18, possible SNF needs versus home health. Code Visit Inpatient E&M: 63233 Subs Hosp L2
[2018-05-17 11:56] LABS: Bedside Glucose 340 mg/dL (70-110)
--- NOTE | 2018-05-17 13:39 | CASEMGMT ---
SW spoke w/pt in room in regard to discharge plan, what he thinks about going somewhere for rehab, as pt is weaker than baseline. Initially pt stated he could go to his daughter Shantell's house instead of going to a [facility]. Pt is okay w/SW calling daughter Shantell to check in w/her. SW called Shantell, she and her are on their way here now. SW explained that SW spoke w/pt about going somewhere for rehab and pt had said he could come to her house. Shantell states that they would not have a room for pt, and that she and her both work. Physician sitting here w/SW and states that she does not think pt should go home, she states pt needs short term rehab in a [facility]. SW let daughter know this. Daughter is in agreement with this. SW explained will tell pt and will leave w/pt a list of nursing homes in network w/his insurance for her to review w/pt and pick out a couple of options. SW explained that SW can then follow up w/pt on Saturday. Daughter states understanding. SW spoke again w/pt, let him know that daughter is on her way here. SW explained to pt that physician feels he should go somewhere for rehab. Pt is agreeable to this. SW gave pt a list of nursing homes in network w/[facility], and asked him to review the list w/daughter, and pick out a couple of places. SW explained that SW can then follow up w/him on Saturday. SW also put the SW on Saturday's name and number on the list. SW will follow up w/pt Saturday for SNF choices and then make referral. STEPHANIE Arechiga, GROUP WORK PROGRAM DIRECTOR
[2018-05-17] MEDS: 0.9% Normal Saline 1,000 ML 100 ML IV (15:22)
[2018-05-17 16:50] LABS: Bedside Glucose 366 mg/dL (70-110)
[2018-05-17] MEDS: Magnesium Hydroxide 30 ML UDC PO (20:41)
[2018-05-17] MEDS: Glucerna Shake 120 ML LIQUID PO (21:18)
[2018-05-17 21:30] LABS: Bedside Glucose 300 mg/dL (70-110)
[2018-05-18] VITALS (16 sets, daily range): BP systolic 115–139; BP diastolic 47–61; PULSE 45–73; RESP 16–18; TEMP 36.3–37.3; O2SAT 92–96
[2018-05-18] MEDS: 0.9% Normal Saline 1,000 ML 100 ML IV ×3 (01:25→21:09)
[2018-05-18 06:03] LABS: Absolute Lymphocyte Count 0.47 X10^3/ul (0.83-4.51); Basophil# 0.01 X10^3/uL; Basophil% 0.2 % (0-1); Differential Indicated SCAN CRITERIA MET; Hematocrit 42.1 % (40-54); Hemoglobin 13.9 g/dl (13.0-16.5); Lymphocyte # 0.47 X10^3/ul (4.0); Lymphocyte % 8.1 % (19-41); Mean Corpuscular Hgb 29.4 pg (27.0-32.0); Mean Corpuscular Volume 89.2 fL (80-94); Monocyte# 0.34 X10^3/uL; Monocyte% 5.9 % (0-10); Neutrophil # 4.96 X10^3/uL (2.7-7.7); Neutrophil % 85.6 % (47-70); POSITIVE COUNT NO; POSITIVE DIFFERENTIAL YES; POSITIVE MORPHOLOGY NO; Platelet Count 91 K/mm3 (150-450); RBC Distribution Width CV 13.8 % (11.6-14.6); RBC Distribution Width SD 45.3 fl (35.1-43.9); Red Blood Count 4.72 M/mm3 (4.6-6.2); White Blood Count 5.8 K/mm3 (4.4-11.0)
[2018-05-18 06:28] LABS: Anion Gap 8 (5-15); BUN 30 mg/dL (7-18); BUN/Creat Ratio 23.8 RATIO (10-20); Calcium,Total 7.7 mg/dL (8.5-10.1); Chloride 114 mmol/L (98-107); Creatinine, Serum 1.26 mg/dL (0.70-1.30); EST Glomerular Filtration Rate 58 mL/min (>60); Est Glom Filt Rate - Afr Amer 71 mL/min (>60); Estimated Creatinine Clearance 47.48 ml/min; Glucose 300 mg/dL (74-106); Potassium 3.8 mmol/L (3.5-5.1); Sodium Level 147 mmol/L (136-145)
--- NOTE | 2018-05-18 06:43 | PCM.PN.HOSP ---
Subjective: The patient is an 82 y/o M w/ PMHx: Diabetes mellitus type II, Non-compliant, Overweight who presents to the [facility] ED on 05/15/18 with generalized weakness, lethargy, progressively worsening x 2 weeks with poor compliance with his oral DM regimen. Admission CBC w/ WBC 16.9, Hgb 17.3, Plts 269 with L shift, BMP w/ Na 135, K 5.3, Chl 96, CO2 9, AG 30, BUN/Cr 59/2.41, gluocse 649, HgbA1c 13.3%. Patient started on an insulin drip. Admitted to the ICU initially-->transitioned to PCU once gap closure, continued on insulin drip until AG closure this AM, transitioned to SC insulin, nutrition consultation. Encouraged diet and insulin regimen compliance. EKG in ED w/ noted atrial flutter with ? T wave inversion inferior leads, CXR w/ no acute findings, initial trop 0.056. Admitted to ICU initially, transitioned to PCU following DKA resolution, maintained on a monitored bed to assure no acute myocardial infarction with serial cardiac enzymes and EKGs. Trop trend 0.056-->0.070-->0.077. ECHO with normal LV size, severe concentric LVH, LV systolic function normal, EF 65%, unable to assess diastolic dysfunction due to arrhythmia, patent foramen ovale. Mag 2. Cardiology consulted, planned initially stress testing planned outpatient; however, given remains for SNF placement per discussion with Dr. Armstrong will obtain 05/19/18 AM nuclear stress testing. Acute kidney injury on Suspected CKD unclear stage: Secondary to acute presentation #1. Admission BUN/Cr 59/2.41, prior baseline creatinine not noted. Will continue to hydrate, hold nephrotoxic medications and trend BMP. 05/18/18 BUN/Cr 30/1.26. FeNa assessment w/ 0.39% consistent with pre-renal presentation given acute #1. Recommend Nephrology referral outpatient. EKG in ED w/ atrial flutter. Rate controlled. Maintained on telemetry, cardiac enzyme serial set 0.056-->0.070-->0.077, magnesium level normal, ECHO with normal LV size, severe concentric LVH, LV systolic function normal, EF 65%, unable to assess diastolic dysfunction due to arrhythmia, patent foramen ovale. TSH level normal. CHADs scoring moderate risk for age and DM. Initiated on renally dosed eliquis. PT, OT, Family w/ planned SNF. Will start precertification on Saturday. Patient with no acute events overnight per self and per nursing report. PT and OT reevaluation evening prior with again confirmation of need for [facility] facility. Discussed patient presentation with daughter at length and with patient and he is finally amenable to [facility] facility placement. Prior authorization will need to be obtained therefore likely will not be discharged until at least Saturday. Patient denies any recurrent events of chest discomfort or dyspnea. Did relate that patient will have cardiac nuclear stress testing given that he will remain into Saturday per discussions with cardiology. Patient denies fevers, chills, nausea, emesis, abdominal pain, chest pain or dyspnea. Objective: Physical Examination: General: awake, alert, oriented x 3 and cooperative, seated upright in bedside chair, in no apparent distress. Skin: normal color, turgor, no icterus, cyanosis except occasional various staged extremity ecchymoses. HEENT: AT/NC, EOMI, PERRLA, MMM. Lungs: CTA bilaterally, moderate effort, mild decrease BL bases, no rales, ronchi or wheezing. Heart: Rate controlled; no gallop, rub audible. Abdomen: soft, NTTP, ND, normal BS. Extremities: no cyanosis, clubbing, or edema. Neurological: patient awake, alert, oriented x 3; cognitive function intact; pupils equally reactive to light and accomodation; cranial nerves II-XII grossly normal, moving all 4 extremities, no focal deficits, strength improving, moderately globally decreased secondary to acute presentation. Psychiatric: affect appears normal, no acute evidence of depressive or anxiety feelings. Vitals/I&O's: Vital Signs Temp Pulse Resp BP Pulse Ox 99.1 F 61 18 115/53 L 93 05/18/18 02:58 05/18/18 03:00 05/18/18 02:58 05/18/18 02:58 05/18/18 02:58 Oxygen Flow Rate (L/min) 2 Oxygen Delivery Method Room Air Weight: 190 lb 7.67 oz Body Mass Index (BMI) 26.2 Finger Stick Blood Glucose 92 Intake and Output for Last 24 Hours 05/16/18 05/17/18 05/18/18 23:59 23:59 23:59 Intake Total 2620.6 / 2620.6 1786 / 1786 573 / 573 Output Total 1250 / 1250 650 / 650 625 / 625 Balance 1370.6 / 1370.6 1136 / 1136 -52 / -52 Laboratory Results 05/17/18 05:12: Total Counted Not Reportable 05/17/18 06:53: POC Glucose 259 H 05/17/18 11:50: POC Glucose 340 H 05/17/18 16:10: POC Glucose 366 H 05/17/18 21:17: POC Glucose 300 H 05/18/18 05:00: WBC 5.8, RBC 4.72, Hgb 13.9, Hct 42.1, MCV 89.2, MCH 29.4, MCHC 33.0, RDW 13.8, RDW Differential 45.3 H, Plt Count 91 L, MPV 12.0, Immature Gran % (Auto) 0.200, Neut % (Auto) 85.6 H, Lymph % (Auto) 8.1 L, [place] % (Auto) 5.9, Eos % (Auto) 0.0, Baso % (Auto) 0.2, Absolute Neuts (auto) 5.0, Absolute Lymphs (auto) 0.47 L, Total Counted Pending 05/18/18 05:00: Sodium 147 H, Potassium 3.8, Chloride 114 H, Carbon Dioxide 25.0, Anion Gap 8, BUN 30 H, Creatinine 1.26, Estim Creat Clear Calc 47.48, Est GFR (MDRD) Af Amer 71, Est GFR (MDRD) Non-Af 58 L, BUN/Creatinine Ratio 23.8 H, Glucose 300 H, Calcium 7.7 L Current Medications Apixaban (Eliquis) 2.5 mg PO BID [facility] Last Admin: 05/17/18 21:18 Dose: 2.5 mg Dextrose (D50w Syringe) 0 gm IV X1 PRN; Protocol PRN Reason: HYPOGLYCEMIA Sodium Chloride () 250 mls @ 15 mls/hr IV .[id number] PRN PRN Reason: SALINE FLUSH Sodium Chloride () 250 mls @ 15 mls/hr IV .[id number] PRN PRN Reason: SALINE FLUSH Sodium Chloride () 1,000 mls @ 100 mls/hr IV .Q10H [facility] Last Admin: 05/18/18 01:25 Dose: 100 mls/hr Insulin Glargine (Lantus (Bk)) 25 units SC BID [facility] Last Admin: 05/17/18 21:19 Dose: 25 units Insulin Human Lispro (Humalog Kwikpen (Bk)) 0 unit SC ACHS [facility]; Protocol Last Admin: 05/17/18 21:20 Dose: 4 u Magnesium Hydroxide (Milk Of Magnesia) 30 ml PO DAILY PRN PRN PRN Reason: Constipation Last Admin: 05/17/18 20:41 Dose: 30 ml Metoprolol Tartrate (Lopressor (Beta Magda)) 12.5 mg PO BID [facility] Last Admin: 05/17/18 21:19 Dose: Not Given Nutritional Formula (Lactose Free) (Glucerna Shake) 120 ml PO 4X/DAY [facility] Last Admin: 05/17/18 21:18 Dose: 120 ml Sodium Chloride () 5 - 15 ml IV UD PRN PRN Reason: SALINE FLUSH Last Admin: 05/15/18 22:06 Dose: 15 ml Medical Necessity - Tobacco Use Smoking Status: Former smoker Tobacco Use: Cigarettes Assessment/Plan The patient is an 82 y/o M w/ PMHx: Diabetes mellitus type II, Non-compliant, Overweight who presents to the [facility] ED on 05/15/18 with generalized weakness, lethargy, progressively worsening x 2 weeks with poor compliance with his oral DM regimen. (1) DKA w/ Diabetes mellitus type II: Admission CBC w/ WBC 16.9, Hgb 17.3, Plts 269 with L shift, BMP w/ Na 135, K 5.3, Chl 96, CO2 9, AG 30, BUN/Cr 59/2.41, gluocse 649, HgbA1c 13.3%. Patient started on an insulin drip. Admitted to the ICU, continued on insulin drip until AG closure this AM, transitioned to SC insulin, will obtain mag and phos levels w/ repletion as needed, nutrition consultation. Encouraged diet and insulin regimen compliance. ICU physician consulted, following. BS trending 200-300, will increase scheduled lantus regimen, continue to increase as needed. (2) Chest Pain: EKG in ED w/ noted atrial flutter with ? T wave inversion inferior leads, CXR w/ no acute findings, initial trop 0.056. Admitted to ICU initially, transitioned to PCU following DKA resolution, maintained on a monitored bed to assure no acute myocardial infarction with serial cardiac enzymes and EKGs. Trop trend 0.056-->0.070-->0.077. ECHO with normal LV size, severe concentric LVH, LV systolic function normal, EF 65%, unable to assess diastolic dysfunction due to arrhythmia, patent foramen ovale. Mag 2. ASA, NG, morphine. Cardiology consulted, initially planned stress testing planned outpatient; however, given will remain awaiting [facility] facility prior authorization will obtain nuclear stress testing in AM 05/19/18. (3) Acute kidney injury on Suspected CKD unclear stage: Secondary to acute presentation #1. Admission BUN/Cr 59/2.41, prior baseline creatinine not noted. Will continue to hydrate, hold nephrotoxic medications and trend BMP. FeNa assessment w/ 0.39% consistent with pre-renal presentation given acute #1. Consider Nephrology referral outpatient. 05/18/18 BUN/Cr 30/1.26, improving. (4) ? New Onset, Paroxsymal atrial flutter: EKG in ED w/ atrial flutter. ICU to PCU with DKA resolution. Rate controlled. Maintain on telemetry, cardiac enzyme serial set 0.056-->0.070-->0.077, magnesium level normal, ECHO with normal LV size, severe concentric LVH, LV systolic function normal, EF 65%, unable to assess diastolic dysfunction due to arrhythmia, patent foramen ovale. TSH level normal. CHADs scoring moderate risk for age and DM. Would consider this appropriate for anticoagulation start at this time, initiated on renally dosed eliquis. Cardiology consulted, amenable to current regimen, interventions. (5) DVT prophylaxis: SCDs, eliquis, renally dosed. (6) Code Status: FULL. (7) Disposition: PT, OT re-evaluation with agreement with SNF. Will need precertification to start Saturday. Code Visit Inpatient E&M: 11149 Subs Hosp L2
--- NOTE | 2018-05-18 06:49 | PN_ITS ---
Subjective: The patient is an 82 y/o M w/ PMHx: Diabetes mellitus type II, Non-compliant, Overweight who presents to the [facility] ED on 05/15/18 with generalized weakness, lethargy, progressively worsening x 2 weeks with poor compliance with his oral DM regimen. Admission CBC w/ WBC 16.9, Hgb 17.3, Plts 269 with L shift, BMP w/ Na 135, K 5.3, Chl 96, CO2 9, AG 30, BUN/Cr 59/2.41, gluocse 649, HgbA1c 13.3%. Patient started on an insulin drip. Admitted to the ICU initially-->transitioned to PCU once gap closure, continued on insulin drip until AG closure this AM, transitioned to SC insulin, nutrition consultation. Encouraged diet and insulin regimen compliance. EKG in ED w/ noted atrial flutter with ? T wave inversion inferior leads, CXR w/ no acute findings, initial trop 0.056. Admitted to ICU initially, transitioned to PCU following DKA resolution, maintained on a monitored bed to assure no acute myocardial infarction with serial cardiac enzymes and EKGs. Trop trend 0.056-->0.070-->0.077. ECHO with normal LV size, severe concentric LVH, LV systolic function normal, EF 65%, unable to assess diastolic dysfunction due to arrhythmia, patent foramen ovale. Mag 2. Cardiology consulted, planned initially stress testing planned outpatient; however, given remains for SNF placement per discussion with Dr. Armstrong will obtain 05/19/18 AM nuclear stress testing. Acute kidney injury on Suspected CKD unclear stage: Secondary to acute presentation #1. Admission BUN/Cr 59/2.41, prior baseline creatinine not noted. Will continue to hydrate, hold nephrotoxic medications and trend BMP. 05/18/18 BUN/Cr 30/1.26. FeNa assessment w/ 0.39% consistent with pre- renal presentation given acute #1. Recommend Nephrology referral outpatient. EKG in ED w/ atrial flutter. Rate controlled. Maintained on telemetry, cardiac enzyme serial set 0.056-->0.070-->0.077, magnesium level normal, ECHO with normal LV size, severe concentric LVH, LV systolic function normal, EF 65%, unable to assess diastolic dysfunction due to arrhythmia, patent foramen ovale. TSH level normal. CHADs scoring moderate risk for age and DM. Initiated on renally dosed eliquis. PT, OT, Family w/ planned SNF. Will start precertification on Saturday. Patient with no acute events overnight per self and per nursing report. PT and OT reevaluation evening prior with again confirmation of need for long term facility. Discussed patient presentation with daughter at length and with patient and he is finally amenable to long term facility placement. Prior authorization will need to be obtained therefore likely will not be discharged until at least Saturday. Patient denies any recurrent events of chest discomfort or dyspnea. Did relate that patient will have cardiac nuclear stress testing given that he will remain into Saturday per discussions with cardiology. Patient denies fevers, chills, nausea, emesis, abdominal pain, chest pain or dyspnea. Objective: Physical Examination: General: awake, alert, oriented x 3 and cooperative, seated upright in bedside chair, in no apparent distress. Skin: normal color, turgor, no icterus, cyanosis except occasional various staged extremity ecchymoses. HEENT: AT/NC, EOMI, PERRLA, MMM. Lungs: CTA bilaterally, moderate effort, mild decrease BL bases, no rales, ronchi or wheezing. Heart: Rate controlled; no gallop, rub audible. Abdomen: soft, NTTP, ND, normal BS. Extremities: no cyanosis, clubbing, or edema. Neurological: patient awake, alert, oriented x 3; cognitive function intact; pupils equally reactive to light and accomodation; cranial nerves II-XII grossly normal, moving all 4 extremities, no focal deficits, strength improving, moderately globally decreased secondary to acute presentation. Psychiatric: affect appears normal, no acute evidence of depressive or anxiety feelings. Vitals/I&O's: Vital Signs Temp Pulse Resp BP Pulse Ox 99.1 F 61 18 115/53 L 93 05/18/18 02:58 05/18/18 03:00 05/18/18 02:58 05/18/18 02:58 05/18/18 02:58 Oxygen Flow Rate (L/min) 2 Oxygen Delivery Method Room Air Weight: 190 lb 7.67 oz Body Mass Index (BMI) 26.2 Finger Stick Blood Glucose 92 Intake and Output for Last 24 Hours 05/16/18 05/17/18 05/18/18 23:59 23:59 23:59 Intake Total 2620.6 / 2620.6 1786 / 1786 573 / 573 Output Total 1250 / 1250 650 / 650 625 / 625 Balance 1370.6 / 1370.6 1136 / 1136 -52 / -52 Laboratory Results 05/17/18 05:12: Total Counted Not Reportable 05/17/18 06:53: POC Glucose 259 H 05/17/18 11:50: POC Glucose 340 H 05/17/18 16:10: POC Glucose 366 H 05/17/18 21:17: POC Glucose 300 H 05/18/18 05:00: WBC 5.8, RBC 4.72, Hgb 13.9, Hct 42.1, MCV 89.2, MCH 29.4, MCHC 33.0, RDW 13.8, RDW Differential 45.3 H, Plt Count 91 L, MPV 12.0, Immature Gran % (Auto) 0.200, Neut % (Auto) 85.6 H, Lymph % (Auto) 8.1 L, [place] % (Auto) 5.9, Eos % (Auto) 0.0, Baso % (Auto) 0.2, Absolute Neuts (auto) 5.0, Absolute Lymphs (auto) 0.47 L, Total Counted Pending 05/18/18 05:00: Sodium 147 H, Potassium 3.8, Chloride 114 H, Carbon Dioxide 25.0, Anion Gap 8, BUN 30 H, Creatinine 1.26, Estim Creat Clear Calc 47.48, Est GFR (MDRD) Af Amer 71, Est GFR (MDRD) Non-Af 58 L, BUN/Creatinine Ratio 23.8 H, Glucose 300 H, Calcium 7.7 L Current Medications Apixaban (Eliquis) 2.5 mg PO BID [facility] Last Admin: 05/17/18 21:18 Dose: 2.5 mg Dextrose (D50w Syringe) 0 gm IV X1 PRN; Protocol PRN Reason: HYPOGLYCEMIA Sodium Chloride () 250 mls @ 15 mls/hr IV .[id number] PRN PRN Reason: SALINE FLUSH Sodium Chloride () 250 mls @ 15 mls/hr IV .[id number] PRN PRN Reason: SALINE FLUSH Sodium Chloride () 1,000 mls @ 100 mls/hr IV .Q10H [facility] Last Admin: 05/18/18 01:25 Dose: 100 mls/hr Insulin Glargine (Lantus (Bk)) 25 units SC BID [facility] Last Admin: 05/17/18 21:19 Dose: 25 units Insulin Human Lispro (Humalog Kwikpen (Bk)) 0 unit SC ACHS [facility]; Protocol Last Admin: 05/17/18 21:20 Dose: 4 u Magnesium Hydroxide (Milk Of Magnesia) 30 ml PO DAILY PRN PRN PRN Reason: Constipation Last Admin: 05/17/18 20:41 Dose: 30 ml Metoprolol Tartrate (Lopressor (Beta Magda)) 12.5 mg PO BID [facility] Last Admin: 05/17/18 21:19 Dose: Not Given Nutritional Formula (Lactose Free) (Glucerna Shake) 120 ml PO 4X/DAY [facility] Last Admin: 05/17/18 21:18 Dose: 120 ml Sodium Chloride () 5 - 15 ml IV UD PRN PRN Reason: SALINE FLUSH Last Admin: 05/15/18 22:06 Dose: 15 ml Medical Necessity - Tobacco Use Smoking Status: Former smoker Tobacco Use: Cigarettes Assessment/Plan The patient is an 82 y/o M w/ PMHx: Diabetes mellitus type II, Non-compliant, Overweight who presents to the [facility] ED on 05/15/18 with generalized weakness, lethargy, progressively worsening x 2 weeks with poor compliance with his oral DM regimen. (1) DKA w/ Diabetes mellitus type II: Admission CBC w/ WBC 16.9, Hgb 17.3, Plts 269 with L shift, BMP w/ Na 135, K 5.3, Chl 96, CO2 9, AG 30, BUN/Cr 59/2.41, gluocse 649, HgbA1c 13.3%. Patient started on an insulin drip. Admitted to the ICU, continued on insulin drip until AG closure this AM, transitioned to SC insulin, will obtain mag and phos levels w/ repletion as needed, nutrition consultation. Encouraged diet and insulin regimen compliance. ICU physician consulted, following. BS trending 200-300, will increase scheduled lantus regimen, continue to increase as needed. (2) Chest Pain: EKG in ED w/ noted atrial flutter with ? T wave inversion inferior leads, CXR w/ no acute findings, initial trop 0.056. Admitted to ICU initially, transitioned to PCU following DKA resolution, maintained on a monitored bed to assure no acute myocardial infarction with serial cardiac e nzymes and EKGs. Trop trend 0.056-->0.070-->0.077. ECHO with normal LV size, severe concentric LVH, LV systolic function normal, EF 65%, unable to assess diastolic dysfunction due to arrhythmia, patent foramen ovale. Mag 2. ASA, NG, morphine. Cardiology consulted, initially planned stress testing planned outpatient; however, given will remain awaiting long term facility prior authorization will obtain nuclear stress testing in AM 05/19/18. (3) Acute kidney injury on Suspected CKD unclear stage: Secondary to acute presentation #1. Admission BUN/Cr 59/2.41, prior baseline creatinine not noted. Will continue to hydrate, hold nephrotoxic medications and trend BMP. FeNa assessment w/ 0.39% consistent with pre-renal presentation given acute #1. Consider Nephrology referral outpatient. 05/18/18 BUN/Cr 30/1.26, improving. (4) ? New Onset, Paroxsymal atrial flutter: EKG in ED w/ atrial flutter. ICU to PCU with DKA resolution. Rate controlled. Maintain on telemetry, cardiac enzyme serial set 0.056-->0.070-->0.077, magnesium level normal, ECHO with normal LV size, severe concentric LVH, LV systolic function normal, EF 65%, unable to assess diastolic dysfunction due to arrhythmia, patent foramen ovale. TSH level normal. CHADs scoring moderate risk for age and DM. Would consider this appropriate for anticoagulation start at this time, initiated on renally dosed eliquis. Cardiology consulted, amenable to current regimen, interventions. (5) DVT prophylaxis: SCDs, eliquis, renally dosed. (6) Code Status: FULL. (7) Disposition: PT, OT re-evaluation with agreement with SNF. Will need precertification to start Saturday. Code Visit Inpatient E&M: 60049 Subs Hosp L2
[2018-05-18 07:21] LABS: Bedside Glucose 307 mg/dL (70-110)
[2018-05-18] MEDS: Insulin Lispro 100 UNIT/ML INSULN.PEN SC ×4 (08:34→21:10)
[2018-05-18] MEDS: APIXABAN 2.5 MG TABLET PO ×2 (09:32→21:09)
[2018-05-18] MEDS: Metoprolol Tartrate 25 MG Tablet 12.5 MG PO ×2 (09:32→21:09)
[2018-05-18] MEDS: Glucerna Shake 120 ML LIQUID PO ×3 (09:32→21:10)
--- NOTE | 2018-05-18 10:11 | PCM.PN.CARD ---
Subjectve: Patient seen and evaluated. Appears to be doing better this morning. [facility] Objective: Vital Signs Temp Pulse Resp BP Pulse Ox 97.4 F L 54 L 18 139/47 H 92 05/18/18 08:52 05/18/18 09:32 05/18/18 08:52 05/18/18 09:32 05/18/18 08:59 Oxygen Flow Rate (L/min) 2 Oxygen Delivery Method Room Air Weight: 190 lb 7.67 oz Body Mass Index (BMI) 26.2 Finger Stick Blood Glucose 92 Intake and Output for Last 24 Hours 05/16/18 05/17/18 05/18/18 23:59 23:59 23:59 Intake Total 2620.6 / 2620.6 1786 / 1786 573 / 573 Output Total 1250 / 1250 650 / 650 625 / 625 Balance 1370.6 / 1370.6 1136 / 1136 -52 / -52 General: Awake, Alert, Oriented x 3 HEENT: PERRL, EOMI, Sclera Non Icteric Neck: Supple, Good ROM, No Lymph Node Enlargement Lungs: Clear to auscultation Cardiovascular: Regular Rhythm, Normal S1, Normal S2, No Murmurs, No Rubs, No Gallops Vascular: No Carotid Bruits, Normal Femoral Pulses, Normal Radial Pulses, Normal Dorsalis Pedal Pulse, Normal Posterior Tibial Pulses Abdomen: Bowel Sounds Present, Soft, Non Tender, No HSM, No Organomegaly Extremities: No Cyanosis, No Clubbing, No edema Lymphatic: No Lymph Node Enlargement Neurological: No Focal Motor or Sensory Deficit 05/18/18 05:00: WBC 5.8, RBC 4.72, Hgb 13.9, Hct 42.1, MCV 89.2, MCH 29.4, MCHC 33.0, RDW 13.8, RDW Differential 45.3 H, Plt Count 91 L, MPV 12.0, Immature Gran % (Auto) 0.200, Neut % (Auto) 85.6 H, Lymph % (Auto) 8.1 L, [place] % (Auto) 5.9, Eos % (Auto) 0.0, Baso % (Auto) 0.2, Absolute Neuts (auto) 5.0, Total Counted Not Reportable 05/18/18 05:00: Sodium 147 H, Potassium 3.8, Chloride 114 H, Carbon Dioxide 25.0, Anion Gap 8, BUN 30 H, Creatinine 1.26, Est GFR (MDRD) Af Amer 71, Est GFR (MDRD) Non-Af 58 L, BUN/Creatinine Ratio 23.8 H, Glucose 300 H, Calcium 7.7 L Rhythm: EKG: ECHO: Stress Test: Cardiac Cath: PCI: CT Surgery: Holter monitor: EPS: PPM: CXR: Chest CT Scan: Medical Necessity - Tobacco Use Smoking Status: Former smoker Tobacco Use: Cigarettes Assessment/Plan 1. Atrial flutter Patient presents with atrial flutter unbeknownst to him. His ventricular response rate is controlled at this particular time, and his ejection fraction by echocardiogram is noted to be normal. I would recommend that we continue anticoagulation as has been started by the hospitalist. 2. Abnormal cardiac enzymes He appears to have mildly elevated troponins which may be secondary to demand ischemia I would recommend that we continue with hydration We may consider a pharmacologic stress test prior -due to the delay in discharge this can be done in the morning. He appears to be stable enough at this time on the current medical therapy. Thank you for allowing me to participate in the care of your patient. Please don't hesitate to call if any issues arise
[2018-05-18] MEDS: Magnesium Hydroxide 30 ML UDC PO ×2 (11:22→21:18)
[2018-05-18 11:26] LABS: Bedside Glucose 357 mg/dL (70-110)
[2018-05-18 16:31] LABS: Bedside Glucose 309 mg/dL (70-110)
[2018-05-18 22:11] LABS: Bedside Glucose 301 mg/dL (70-110)
[2018-05-19] VITALS (14 sets, daily range): BP systolic 106–130; BP diastolic 41–60; PULSE 45–67; RESP 16–18; TEMP 36.6–37.4; O2SAT 93–96
[2018-05-19 05:07] LABS: Absolute Lymphocyte Count 0.34 X10^3/ul (0.83-4.51); Absolute Neutrophil Count 6.5 X10^3/uL (2.0-7.7); Basophil# 0.01 X10^3/uL; Basophil% 0.1 % (0-1); Eosinophil# 0.05 X10^3/uL; Eosinophils% 0.7 % (0-5); Hematocrit 42.9 % (40-54); Hemoglobin 14.2 g/dl (13.0-16.5); Lymphocyte # 0.34 X10^3/ul (4.0); Lymphocyte % 4.6 % (19-41); Mean Corp Hgb Conc 33.1 g/gl (32-36); Mean Corpuscular Hgb 29.8 pg (27.0-32.0); Mean Corpuscular Volume 89.9 fL (80-94); Mean Platelet Vol. 12.1 fl (6.2-12.0); Monocyte# 0.47 X10^3/uL; Monocyte% 6.4 % (0-10); Neutrophil # 6.46 X10^3/uL (2.7-7.7); Neutrophil % 87.7 % (47-70); Platelet Count 99 K/mm3 (150-450); RBC Distribution Width CV 13.9 % (11.6-14.6); RBC Distribution Width SD 45.6 fl (35.1-43.9); Red Blood Count 4.77 M/mm3 (4.6-6.2); White Blood Count 7.4 K/mm3 (4.4-11.0)
[2018-05-19 05:08] LABS: Differential Indicated SCAN CRITERIA MET; International Normalized Ratio 1.3; POSITIVE COUNT NO; POSITIVE DIFFERENTIAL YES; POSITIVE MORPHOLOGY NO; Prothrombin Time (Protime)PT. 16.1 SECONDS (11.7-14.9)
[2018-05-19 05:09] LABS: Partial Thromboplast Time 33.1 Seconds (24.1-36.2)
[2018-05-19 05:28] LABS: Anion Gap 7 (5-15); BUN 24 mg/dL (7-18); BUN/Creat Ratio 19.8 RATIO (10-20); Chloride 114 mmol/L (98-107); Creatinine, Serum 1.21 mg/dL (0.70-1.30); EST Glomerular Filtration Rate 61 mL/min (>60); Est Glom Filt Rate - Afr Amer 74 mL/min (>60); Estimated Creatinine Clearance 49.44 ml/min; Glucose 92 mg/dL (74-106); Potassium 3.8 mmol/L (3.5-5.1); Sodium Level 150 mmol/L (136-145)
[2018-05-19] MEDS: 0.9% Normal Saline 1,000 ML 100 ML IV (05:46)
--- NOTE | 2018-05-19 05:55 | EKG12_ITS ---
Test Reason : AM EKG Blood Pressure : / mmHG Vent. Rate : 067 BPM Atrial Rate : 344 BPM P-R Int : 000 ms QRS Dur : 094 ms QT Int : 350 ms P-R-T Axes : 000 016 036 degrees QTc Int : 369 ms Atrial flutter with variable A-V block Nonspecific T wave abnormality Abnormal ECG When compared with ECG of 15-MAY-2018 11:43, MANUAL COMPARISON REQUIRED, DATA IS UNCONFIRMED Confirmed by NAHUN LUCIANO, FORD ([id number]), acquisition editor SYDNEY STRINGER ([id number]) on 05/20/2018 9:04:40 AM Referred By: Vy Qiu Confirmed By:FORD GARNICA MD
[2018-05-19] MEDS: Dextrose 50%-Water 25 GM/50 ML DISP.SYRIN IV (06:45)
[2018-05-19 07:21] LABS: Bedside Glucose 60 mg/dL (70-110)
[2018-05-19 07:21] LABS: Bedside Glucose 133 mg/dL (70-110)
[2018-05-19 09:51] LABS: Bedside Glucose 104 mg/dL (70-110)
[2018-05-19] MEDS: Metoprolol Tartrate 25 MG Tablet 12.5 MG PO (09:53)
--- NOTE | 2018-05-19 10:31 | CASEMGMT ---
Addendum entered by Disha Lincoln 05/19/18 12:14: LILLY received voice mail from Dedra at [facility] and they can accept patient. She will start the pre-cert. SW spoke with patient and let him know about conversation with daughter and about [facility]. He was in agreement with this plan. Plan; [facility] pending insurance approval. Disha PRESCOTT Original Note: LILLY attempted to meet with patient to see which facility he would be willing to go to for rehab. He was sleeping and did not wake to LILLY saying his name. LILLY called his daughter, Shantell and she said they would like some place up closer to them in [place]. Their first choice would be [facility] in [place]. The next choice would be [facility] [place], but she was not sure if they are in network. LILLY told her that it is possible patient could get denied by insurance to go to senior care as he is doing better. LILLY called [facility] and Dedra is the patient service coordinator. They have openings. Her phone number is [phone] and fax [phone]. LILLY faxed referral. Disha PRESCOTT
--- NOTE | 2018-05-19 10:32 | PCM.PN.HOSP ---
Subjective: Patient was seen and examined. Denies dizziness, palpitations, fever, chills. Vitals/I&O's: Vital Signs Temp Pulse Resp BP Pulse Ox 98.5 F 67 16 125/52 H 96 05/19/18 09:42 05/19/18 09:53 05/19/18 09:42 05/19/18 09:53 05/19/18 09:42 Oxygen Flow Rate (L/min) 2 Oxygen Delivery Method Room Air Weight: 87.5 kg Body Mass Index (BMI) 26.2 Finger Stick Blood Glucose 92 Intake and Output for Last 24 Hours 05/17/18 05/18/18 05/19/18 23:59 23:59 23:59 Intake Total 1786 / 1786 3829 / 3829 545 / 545 Output Total 650 / 650 1450 / 1450 300 / 300 Balance 1136 / 1136 2379 / 2379 245 / 245 General: Alert, Oriented x3, Cooperative, No apparent distress HEENT: Atraumatic, PERRLA, EOMI, Normocephalic Oral: Dry Mucosa Neck: Supple, No JVD, Negative Carotid Bruits Lungs: Clear to auscultation, Normal air movement Cardiovascular: Regular rate, Regular Rhythm, Normal S1, Normal S2, No murmurs Abdomen: Bowel Sounds Present, Soft, Non Tender, Non-Distended, No Hepato-splenomegaly Extremities: No edema Skin: No rashes, No breakdown Musculoskeletal: No Tenderness to Palpation of Joints or Extremities Lymphatic: No Cervical, Supraclavicular, or Inguinal Adenopathy Neurological: Cranial nerves II-XII grossly intact, Neuro grossly intact Psych/Mental Status: Normal Affect, Appropriate Laboratory Results 05/18/18 11:16: POC Glucose 357 H 05/18/18 16:26: POC Glucose 309 H 05/18/18 21:07: POC Glucose 301 H 05/19/18 04:32: WBC 7.4, RBC 4.77, Hgb 14.2, Hct 42.9, MCV 89.9, MCH 29.8, MCHC 33.1, RDW 13.9, RDW Differential 45.6 H, Plt Count 99 L, MPV 12.1 H, Immature Gran % (Auto) 0.500, Neut % (Auto) 87.7 H, Lymph % (Auto) 4.6 L, [place] % (Auto) 6.4, Eos % (Auto) 0.7, Baso % (Auto) 0.1, Absolute Neuts (auto) 6.5, Absolute Lymphs (auto) 0.34 L, Total Counted Not Reportable 05/19/18 04:32: Sodium 150 H, Potassium 3.8, Chloride 114 H, Carbon Dioxide 29.0, Anion Gap 7, BUN 24 H, Creatinine 1.21, Estim Creat Clear Calc 49.44, Est GFR (MDRD) Af Amer 74, Est GFR (MDRD) Non-Af 61, BUN/Creatinine Ratio 19.8, Glucose 92, Calcium 8.0 L 05/19/18 04:32: PT 16.1 H, INR 1.3, APTT 33.1 05/19/18 06:40: POC Glucose 60 L 05/19/18 07:11: POC Glucose 133 H 05/19/18 09:46: POC Glucose 104 Current Medications Apixaban (Eliquis) 2.5 mg PO BID [facility] Last Admin: 05/19/18 09:54 Dose: Not Given Dextrose (D50w Syringe) 0 gm IV X1 PRN; Protocol PRN Reason: HYPOGLYCEMIA Last Admin: 05/19/18 06:45 Dose: 25 gm Sodium Chloride () 250 mls @ 15 mls/hr IV .[id number] PRN PRN Reason: SALINE FLUSH Sodium Chloride () 250 mls @ 15 mls/hr IV .[id number] PRN PRN Reason: SALINE FLUSH Dextrose () 1,000 mls @ 75 mls/hr IV .[id number] [facility] Last Admin: 05/19/18 10:21 Dose: 75 mls/hr Insulin Glargine (Lantus (Bkc)) 35 units SC BID [facility] Last Admin: 05/19/18 09:54 Dose: Not Given Insulin Human Lispro (Humalog Kwikpen (Bk)) 0 unit SC ACHS [facility]; Protocol Last Admin: 05/19/18 08:19 Dose: Not Given Magnesium Hydroxide (Milk Of Magnesia) 30 ml PO DAILY PRN PRN PRN Reason: Constipation Last Admin: 05/18/18 21:18 Dose: 30 ml Metoprolol Tartrate (Lopressor (Beta Magda)) 12.5 mg PO BID [facility] Last Admin: 05/19/18 09:53 Dose: 12.5 mg Nutritional Formula (Lactose Free) (Glucerna Shake) 120 ml PO 4X/DAY [facility] Last Admin: 05/19/18 09:54 Dose: Not Given Sodium Chloride () 5 - 15 ml IV UD PRN PRN Reason: SALINE FLUSH Last Admin: 05/15/18 22:06 Dose: 15 ml Medical Necessity - Tobacco Use Smoking Status: Former smoker Tobacco Use: Cigarettes Assessment/Plan 82 y/o with PMHx of Type 2DM, with reported noncompliance with his medications, admitted with DKA. Was on insulin drip in the ICU and transitioned to insulin, patient is currently on the PCU floor, awaiting discharge to nursing home facility. 1. Acute DKA/type II DM, uncomplicated, HbA1c 13.3, blood sugars are currently stable on insulin 2. Hypernatremia secondary to dehydration, will switch to D5 water, BMP at 5 PM and in a.m. 3. Atrial flutter, controlled, on metoprolol, Eliquis 4. CEE on CKD, unclear stage, creatinine is improved, will continue to monitor 5. Chest pain, elevated troponins, likely secondary to non-VA troponin elevation, stress test negative 6. DVT PPx- Eliquis Code Visit Inpatient E&M: 44569 Subs Hosp L2
--- NOTE | 2018-05-19 10:45 | PN_ITS ---
Subjective: Patient was seen and examined. Denies dizziness, palpitations, fever, chills. Vitals/I&O's: Vital Signs Temp Pulse Resp BP Pulse Ox 98.5 F 67 16 125/52 H 96 05/19/18 09:42 05/19/18 09:53 05/19/18 09:42 05/19/18 09:53 05/19/18 09:42 Oxygen Flow Rate (L/min) 2 Oxygen Delivery Method Room Air Weight: 87.5 kg Body Mass Index (BMI) 26.2 Finger Stick Blood Glucose 92 Intake and Output for Last 24 Hours 05/17/18 05/18/18 05/19/18 23:59 23:59 23:59 Intake Total 1786 / 1786 3829 / 3829 545 / 545 Output Total 650 / 650 1450 / 1450 300 / 300 Balance 1136 / 1136 2379 / 2379 245 / 245 General: Alert, Oriented x3, Cooperative, No apparent distress HEENT: Atraumatic, PERRLA, EOMI, Normocephalic Oral: Dry Mucosa Neck: Supple, No JVD, Negative Carotid Bruits Lungs: Clear to auscultation, Normal air movement Cardiovascular: Regular rate, Regular Rhythm, Normal S1, Normal S2, No murmurs Abdomen: Bowel Sounds Present, Soft, Non Tender, Non-Distended, No Hepato- splenomegaly Extremities: No edema Skin: No rashes, No breakdown Musculoskeletal: No Tenderness to Palpation of Joints or Extremities Lymphatic: No Cervical, Supraclavicular, or Inguinal Adenopathy Neurological: Cranial nerves II-XII grossly intact, Neuro grossly intact Psych/Mental Status: Normal Affect, Appropriate Laboratory Results 05/18/18 11:16: POC Glucose 357 H 05/18/18 16:26: POC Glucose 309 H 05/18/18 21:07: POC Glucose 301 H 05/19/18 04:32: WBC 7.4, RBC 4.77, Hgb 14.2, Hct 42.9, MCV 89.9, MCH 29.8, MCHC 33.1, RDW 13.9, RDW Differential 45.6 H, Plt Count 99 L, MPV 12.1 H, Immature Gran % (Auto) 0.500, Neut % (Auto) 87.7 H, Lymph % (Auto) 4.6 L, [place] % (Auto) 6.4, Eos % (Auto) 0.7, Baso % (Auto) 0.1, Absolute Neuts (auto) 6.5, Absolute Lymphs (auto) 0.34 L, Total Counted Not Reportable 05/19/18 04:32: Sodium 150 H, Potassium 3.8, Chloride 114 H, Carbon Dioxide 29.0, Anion Gap 7, BUN 24 H, Creatinine 1.21, Estim Creat Clear Calc 49.44, Est GFR (MDRD) Af Amer 74, Est GFR (MDRD) Non-Af 61, BUN/Creatinine Ratio 19.8, Glucose 92, Calcium 8.0 L 05/19/18 04:32: PT 16.1 H, INR 1.3, APTT 33.1 05/19/18 06:40: POC Glucose 60 L 05/19/18 07:11: POC Glucose 133 H 05/19/18 09:46: POC Glucose 104 Current Medications Apixaban (Eliquis) 2.5 mg PO BID [facility] Last Admin: 05/19/18 09:54 Dose: Not Given Dextrose (D50w Syringe) 0 gm IV X1 PRN; Protocol PRN Reason: HYPOGLYCEMIA Last Admin: 05/19/18 06:45 Dose: 25 gm Sodium Chloride () 250 mls @ 15 mls/hr IV .[id number] PRN PRN Reason: SALINE FLUSH Sodium Chloride () 250 mls @ 15 mls/hr IV .[id number] PRN PRN Reason: SALINE FLUSH Dextrose () 1,000 mls @ 75 mls/hr IV .[id number] [facility] Last Admin: 05/19/18 10:21 Dose: 75 mls/hr Insulin Glargine (Lantus (Bkc)) 35 units SC BID [facility] Last Admin: 05/19/18 09:54 Dose: Not Given Insulin Human Lispro (Humalog Kwikpen (Bk)) 0 unit SC ACHS [facility]; Protocol Last Admin: 05/19/18 08:19 Dose: Not Given Magnesium Hydroxide (Milk Of Magnesia) 30 ml PO DAILY PRN PRN PRN Reason: Constipation Last Admin: 05/18/18 21:18 Dose: 30 ml Metoprolol Tartrate (Lopressor (Beta Magda)) 12.5 mg PO BID [facility] Last Admin: 05/19/18 09:53 Dose: 12.5 mg Nutritional Formula (Lactose Free) (Glucerna Shake) 120 ml PO 4X/DAY [facility] Last Admin: 05/19/18 09:54 Dose: Not Given Sodium Chloride () 5 - 15 ml IV UD PRN PRN Reason: SALINE FLUSH Last Admin: 05/15/18 22:06 Dose: 15 ml Medical Necessity - Tobacco Use Smoking Status: Former smoker Tobacco Use: Cigarettes Assessment/Plan 82 y/o with PMHx of Type 2DM, with reported noncompliance with his medications, admitted with DKA. Was on insulin drip in the ICU and transitioned to insulin, patient is currently on the PCU floor, [facility]. 1. Acute DKA/type II DM, uncomplicated, HbA1c 13.3, blood sugars are currently stable on insulin 2. Hypernatremia secondary to dehydration, will switch to D5 water, BMP at 5 PM and in a.m. 3. Atrial flutter, controlled, on metoprolol, Eliquis 4. CEE on CKD, unclear stage, creatinine is improved, will continue to monitor 5. Chest pain, elevated troponins, likely secondary to non-SC troponin elevation, stress test negative 6. DVT PPx- Eliquis Code Visit Inpatient E&M: 06360 Subs Hosp L2
--- NOTE | 2018-05-19 11:17 | STRESSREP ---
Stress Test Report Pharmacologic myocardial perfusion stress test. 82-year-old male with a history of atrial fibrillation flutter. Stress protocol: Resting EKG demonstrates atrial fibrillation with a rate of 75 bpm resting blood pressure 120/60 mmHg. 0.4 mg of regadenoson was fused per usual protocol followed by rapid intravenous saline flush injection continuous EKG monitoring was performed. The maximum heart rate attained was 96 bpm which was 69% of maximum predicted heart rate the maximum workload was 1 metabolic equivalent. At rest there were no ST or T wave changes noted suggest abnormal flow reserve at peak infusion there were no ST or T wave changes noted suggest abnormal flow reserve. The resting blood pressure 120/60 with a final blood pressure 128/60 mmHg. Myocardial perfusion protocol. 10.0 mCi of technetium 99m sestamibi was injected at rest. 0.4 mg of regadenoson was infused per usual protocol peak infusion 31.7 mCi of technetium 99m sestamibi was injected stress images were obtained stress and rest images were reconstructed and compared in the short axis vertical long horizontal long axis. Gated images were also obtained Perfusion SPECT analysis: Review of the images demonstrate normal uptake of tracer noted in all areas of the myocardium. The resting images similarly demonstrate normal uptake of tracer noted in all areas of myocardium. Gated SPECT analysis: The gated ejection fraction is noted to be 75%. Conclusion: Normal pharmacologic myocardial perfusion stress test. Preserved ejection fraction.
--- NOTE | 2018-05-19 11:36 | PCM.PN.CARD ---
Subjectve: Patient seen and evaluated Objective: Vital Signs Temp Pulse Resp BP Pulse Ox 98.5 F 67 16 125/52 H 96 05/19/18 09:42 05/19/18 09:53 05/19/18 09:42 05/19/18 09:53 05/19/18 09:42 Oxygen Flow Rate (L/min) 2 Oxygen Delivery Method Room Air Weight: 192 lb 14.472 oz Body Mass Index (BMI) 26.2 Finger Stick Blood Glucose 92 Intake and Output for Last 24 Hours 05/17/18 05/18/18 05/19/18 23:59 23:59 23:59 Intake Total 1786 / 1786 3829 / 3829 545 / 545 Output Total 650 / 650 1450 / 1450 300 / 300 Balance 1136 / 1136 2379 / 2379 245 / 245 General: Awake, Alert, Oriented x 3 HEENT: PERRL, EOMI, Sclera Non Icteric Neck: Supple, Good ROM, No Lymph Node Enlargement Lungs: Clear to auscultation Cardiovascular: Irregular Rhythm, Normal S1, Normal S2, No Murmurs, No Rubs, No Gallops Vascular: No Carotid Bruits, Normal Femoral Pulses, Normal Radial Pulses, Normal Dorsalis Pedal Pulse, Normal Posterior Tibial Pulses Abdomen: Bowel Sounds Present, Soft, Non Tender, No HSM, No Organomegaly Extremities: No Cyanosis, No Clubbing, No edema Musculoskeletal: No Erythema Neurological: No Focal Motor or Sensory Deficit 05/19/18 04:32: WBC 7.4, RBC 4.77, Hgb 14.2, Hct 42.9, MCV 89.9, MCH 29.8, MCHC 33.1, RDW 13.9, RDW Differential 45.6 H, Plt Count 99 L, MPV 12.1 H, Immature Gran % (Auto) 0.500, Neut % (Auto) 87.7 H, Lymph % (Auto) 4.6 L, [place] % (Auto) 6.4, Eos % (Auto) 0.7, Baso % (Auto) 0.1, Absolute Neuts (auto) 6.5, Total Counted Not Reportable 05/19/18 04:32: Sodium 150 H, Potassium 3.8, Chloride 114 H, Carbon Dioxide 29.0, Anion Gap 7, BUN 24 H, Creatinine 1.21, Est GFR (MDRD) Af Amer 74, Est GFR (MDRD) Non-Af 61, BUN/Creatinine Ratio 19.8, Glucose 92, Calcium 8.0 L 05/19/18 04:32: PT 16.1 H, INR 1.3, APTT 33.1 Rhythm: EKG: ECHO: Stress Test: Cardiac Cath: PCI: CT Surgery: Holter monitor: EPS: PPM: CXR: Chest CT Scan: Medical Necessity - Tobacco Use Smoking Status: Former smoker Tobacco Use: Cigarettes Assessment/Plan 1. Atrial flutter Patient presents with atrial flutter unbeknownst to him. His ventricular response rate is controlled at this particular time, and his ejection fraction by echocardiogram is noted to be normal. I would recommend that we continue anticoagulation as has been started by the hospitalist. He can be discharged for outpatient follow-up 2. Abnormal cardiac enzymes He appears to have mildly elevated troponins which may be secondary to demand ischemia I would recommend that we continue with hydration Stress tests this morning demonstrates no evidence of ischemia He appears to be stable enough at this time on the current medical therapy. Thank you for allowing me to participate in the care of your patient. Please don't hesitate to call if any issues arise
--- NOTE | 2018-05-19 11:42 | PN.CARD_ITS ---
Subjectve: Patient seen and evaluated Objective: Vital Signs Temp Pulse Resp BP Pulse Ox 98.5 F 67 16 125/52 H 96 05/19/18 09:42 05/19/18 09:53 05/19/18 09:42 05/19/18 09:53 05/19/18 09:42 Oxygen Flow Rate (L/min) 2 Oxygen Delivery Method Room Air Weight: 192 lb 14.472 oz Body Mass Index (BMI) 26.2 Finger Stick Blood Glucose 92 Intake and Output for Last 24 Hours 05/17/18 05/18/18 05/19/18 23:59 23:59 23:59 Intake Total 1786 / 1786 3829 / 3829 545 / 545 Output Total 650 / 650 1450 / 1450 300 / 300 Balance 1136 / 1136 2379 / 2379 245 / 245 General: Awake, Alert, Oriented x 3 HEENT: PERRL, EOMI, Sclera Non Icteric Neck: Supple, Good ROM, No Lymph Node Enlargement Lungs: Clear to auscultation Cardiovascular: Irregular Rhythm, Normal S1, Normal S2, No Murmurs, No Rubs, No Gallops Vascular: No Carotid Bruits, Normal Femoral Pulses, Normal Radial Pulses, Normal Dorsalis Pedal Pulse, Normal Posterior Tibial Pulses Abdomen: Bowel Sounds Present, Soft, Non Tender, No HSM, No Organomegaly Extremities: No Cyanosis, No Clubbing, No edema Musculoskeletal: No Erythema Neurological: No Focal Motor or Sensory Deficit 05/19/18 04:32: WBC 7.4, RBC 4.77, Hgb 14.2, Hct 42.9, MCV 89.9, MCH 29.8, MCHC 33.1, RDW 13.9, RDW Differential 45.6 H, Plt Count 99 L, MPV 12.1 H, Immature Gran % (Auto) 0.500, Neut % (Auto) 87.7 H, Lymph % (Auto) 4.6 L, [place] % (Auto) 6.4, Eos % (Auto) 0.7, Baso % (Auto) 0.1, Absolute Neuts (auto) 6.5, Total Counted Not Reportable 05/19/18 04:32: Sodium 150 H, Potassium 3.8, Chloride 114 H, Carbon Dioxide 29.0, Anion Gap 7, BUN 24 H, Creatinine 1.21, Est GFR (MDRD) Af Amer 74, Est GFR (MDRD) Non-Af 61, BUN/Creatinine Ratio 19.8, Glucose 92, Calcium 8.0 L 05/19/18 04:32: PT 16.1 H, INR 1.3, APTT 33.1 Rhythm: EKG: ECHO: Stress Test: Cardiac Cath: PCI: CT Surgery: Holter monitor: EPS: PPM: CXR: Chest CT Scan: Medical Necessity - Tobacco Use Smoking Status: Former smoker Tobacco Use: Cigarettes Assessment/Plan 1. Atrial flutter * Patient presents with atrial flutter unbeknownst to him. His ventricular response rate is controlled at this particular time, and his ejection fraction by echocardiogram is noted to be normal. * I would recommend that we continue anticoagulation as has been started by the hospitalist. * He can be discharged for outpatient follow-up 2. Abnormal cardiac enzymes * He appears to have mildly elevated troponins which may be secondary to demand ischemia * I would recommend that we continue with hydration * Stress tests this morning demonstrates no evidence of ischemia * He appears to be stable enough at this time on the current medical therapy. * Thank you for allowing me to participate in the care of your patient. Please don't hesitate to call if any issues arise
[2018-05-19 11:50] LABS: Bedside Glucose 133 mg/dL (70-110)
--- NOTE | 2018-05-19 13:23 | CASEMGMT ---
LILLY called patient's daughter, Shantell and let her know that [facility] could take him and we just need to wait on insurance to approve. She thanked LILLY for letting her know. Disha PRESCOTT
[2018-05-19] MEDS: Glucerna Shake 120 ML LIQUID PO ×3 (14:39→21:08)
[2018-05-19 14:55] LABS: Anion Gap 3 (5-15); BUN 22 mg/dL (7-18); BUN/Creat Ratio 19.3 RATIO (10-20); Calcium,Total 7.6 mg/dL (8.5-10.1); Chloride 114 mmol/L (98-107); Creatinine, Serum 1.14 mg/dL (0.70-1.30); EST Glomerular Filtration Rate 65 mL/min (>60); Est Glom Filt Rate - Afr Amer 79 mL/min (>60); Estimated Creatinine Clearance 52.47 ml/min; Glucose 131 mg/dL (74-106); Potassium 4.2 mmol/L (3.5-5.1); Sodium Level 145 mmol/L (136-145)
[2018-05-19] MEDS: Insulin Lispro 100 UNIT/ML INSULN.PEN SC ×2 (16:08→21:19)
[2018-05-19 16:16] LABS: Bedside Glucose 235 mg/dL (70-110)
[2018-05-19] MEDS: APIXABAN 2.5 MG TABLET PO (21:07)
[2018-05-19 21:31] LABS: Bedside Glucose 321 mg/dL (70-110)
[2018-05-20] VITALS (12 sets, daily range): BP systolic 109–122; BP diastolic 44–51; PULSE 46–100; RESP 16–18; TEMP 36.3–37.1; O2SAT 94–98
--- NOTE | 2018-05-20 02:03 | NURSING ---
pt assisted to [facility] restroom, had a large bm, much pericare given, pt c/o his bottom hurting, buttocks red, pt stated thats why i lay on my side all the time because my butt is sore. hospitalist notified, calmoseptine ordered
[2018-05-20 05:59] LABS: Absolute Lymphocyte Count 0.63 X10^3/ul (0.83-4.51); Absolute Neutrophil Count 5.1 X10^3/uL (2.0-7.7); Basophil# 0.01 X10^3/uL; Basophil% 0.2 % (0-1); Eosinophil# 0.04 X10^3/uL; Eosinophils% 0.6 % (0-5); Hematocrit 38.8 % (40-54); Hemoglobin 12.7 g/dl (13.0-16.5); Lymphocyte # 0.63 X10^3/ul (4.0); Lymphocyte % 9.8 % (19-41); Mean Corp Hgb Conc 32.7 g/gl (32-36); Mean Corpuscular Hgb 29.6 pg (27.0-32.0); Mean Corpuscular Volume 90.4 fL (80-94); Mean Platelet Vol. 12.1 fl (6.2-12.0); Monocyte# 0.61 X10^3/uL; Monocyte% 9.5 % (0-10); Neutrophil # 5.11 X10^3/uL (2.7-7.7); Neutrophil % 79.4 % (47-70); Platelet Count 116 K/mm3 (150-450); RBC Distribution Width CV 13.8 % (11.6-14.6); Red Blood Count 4.29 M/mm3 (4.6-6.2); White Blood Count 6.4 K/mm3 (4.4-11.0)
[2018-05-20 06:02] LABS: POSITIVE COUNT NO; POSITIVE DIFFERENTIAL NO; POSITIVE MORPHOLOGY NO
[2018-05-20 06:11] LABS: Anion Gap 7 (5-15); BUN 23 mg/dL (7-18); BUN/Creat Ratio 19.5 RATIO (10-20); Calcium,Total 7.5 mg/dL (8.5-10.1); Chloride 109 mmol/L (98-107); Creatinine, Serum 1.18 mg/dL (0.70-1.30); EST Glomerular Filtration Rate 63 mL/min (>60); Est Glom Filt Rate - Afr Amer 76 mL/min (>60); Estimated Creatinine Clearance 50.69 ml/min; Glucose 247 mg/dL (74-106); Potassium 3.8 mmol/L (3.5-5.1); Sodium Level 142 mmol/L (136-145)
[2018-05-20 06:56] LABS: Bedside Glucose 227 mg/dL (70-110)
[2018-05-20] MEDS: Menthol/Lanolin/Calamine/Znox 113 GM Tube 1 APPLIC TOPICAL ×3 (06:57→22:09)
[2018-05-20] MEDS: Insulin Lispro 100 UNIT/ML INSULN.PEN SC ×4 (08:00→22:09)
[2018-05-20] MEDS: Glucerna Shake 120 ML LIQUID PO ×4 (08:01→22:09)
[2018-05-20] MEDS: APIXABAN 2.5 MG TABLET PO ×2 (08:01→22:09)
[2018-05-20] MEDS: Metoprolol Tartrate 25 MG Tablet 12.5 MG PO (08:11)
[2018-05-20 08:16] LABS: Bedside Glucose 222 mg/dL (70-110)
--- NOTE | 2018-05-20 10:26 | PCM.PN.HOSP ---
Subjective: Patient was seen and examined. Denies any complaints. Feels well. No acute events overnight. Objective: Physical exam: General: Alert, Oriented x3, Cooperative, No apparent distress HEENT: Atraumatic, PERRLA, EOMI, Normocephalic Oral: Dry Mucosa Neck: Supple, No JVD, Negative Carotid Bruits Lungs: Clear to auscultation, Normal air movement Cardiovascular: Regular rate, Regular Rhythm, Normal S1, Normal S2, No murmurs Abdomen: Bowel Sounds Present, Soft, Non Tender, Non-Distended, No Hepato-splenomegaly Extremities: No edema Skin: No rashes, No breakdown Musculoskeletal: No Tenderness to Palpation of Joints or Extremities Lymphatic: No Cervical, Supraclavicular, or Inguinal Adenopathy Neurological: Cranial nerves II-XII grossly intact, Neuro grossly intact Psych/Mental Status: Normal Affect, Appropriate Vitals/I&O's: Vital Signs Temp Pulse Resp BP Pulse Ox 97.3 F L 62 16 122/45 H 98 05/20/18 08:25 05/20/18 08:25 05/20/18 08:25 05/20/18 08:25 05/20/18 08:25 Oxygen Flow Rate (L/min) 2 Oxygen Delivery Method Room Air Weight: 90 kg Body Mass Index (BMI) 26.2 Finger Stick Blood Glucose 92 Intake and Output for Last 24 Hours 05/18/18 05/19/18 05/20/18 23:59 23:59 23:59 Intake Total 3829 / 3829 2112 / 2112 947 / 947 Output Total 1450 / 1450 300 / 300 Balance 2379 / 2379 1812 / 1812 947 / 947 Laboratory Results 05/19/18 11:41: POC Glucose 133 H 05/19/18 14:20: Sodium 145, Potassium 4.2, Chloride 114 H, Carbon Dioxide 28.0, Anion Gap 3 L, BUN 22 H, Creatinine 1.14, Estim Creat Clear Calc 52.47, Est GFR (MDRD) Af Amer 79, Est GFR (MDRD) Non-Af 65, BUN/Creatinine Ratio 19.3, Glucose 131 H, Calcium 7.6 L 05/19/18 16:05: POC Glucose 235 H 05/19/18 21:18: POC Glucose 321 H 05/20/18 05:20: WBC 6.4, RBC 4.29 L, Hgb 12.7 L, Hct 38.8 L, MCV 90.4, MCH 29.6, MCHC 32.7, RDW 13.8, RDW Differential 45.0 H, Plt Count 116 L, MPV 12.1 H, Immature Gran % (Auto) 0.500, Neut % (Auto) 79.4 H, Lymph % (Auto) 9.8 L, [place] % (Auto) 9.5, Eos % (Auto) 0.6, Baso % (Auto) 0.2, Absolute Neuts (auto) 5.1, Absolute Lymphs (auto) 0.63 L, Total Counted Not Reportable 05/20/18 05:20: Sodium 142, Potassium 3.8, Chloride 109 H, Carbon Dioxide 26.0, Anion Gap 7, BUN 23 H, Creatinine 1.18, Estim Creat Clear Calc 50.69, Est GFR (MDRD) Af Amer 76, Est GFR (MDRD) Non-Af 63, BUN/Creatinine Ratio 19.5, Glucose 247 H, Calcium 7.5 L 05/20/18 06:51: POC Glucose 227 H 05/20/18 07:58: POC Glucose 222 H Current Medications Apixaban (Eliquis) 2.5 mg PO BID [facility] Last Admin: 05/20/18 08:01 Dose: 2.5 mg Calamine/Phenol (Calmoseptine Ointment) 1 applic TOPICAL TID [facility]; Protocol Last Admin: 05/20/18 06:57 Dose: 1 applicatio Dextrose (D50w Syringe) 0 gm IV X1 PRN; Protocol PRN Reason: HYPOGLYCEMIA Last Admin: 05/19/18 06:45 Dose: 25 gm Sodium Chloride () 250 mls @ 15 mls/hr IV .[id number] PRN PRN Reason: SALINE FLUSH Sodium Chloride () 250 mls @ 15 mls/hr IV .[id number] PRN PRN Reason: SALINE FLUSH Dextrose () 1,000 mls @ 75 mls/hr IV .[id number] [facility] Last Admin: 05/19/18 21:07 Dose: 75 mls/hr Insulin Glargine (Lantus (Bkc)) 35 units SC BID [facility] Last Admin: 05/20/18 08:01 Dose: 35 u Insulin Human Lispro (Humalog Kwikpen (Bkc)) 0 unit SC ACHS [facility]; Protocol Last Admin: 05/20/18 08:00 Dose: 2 u Magnesium Hydroxide (Milk Of Magnesia) 30 ml PO DAILY PRN PRN PRN Reason: Constipation Last Admin: 05/18/18 21:18 Dose: 30 ml Metoprolol Tartrate (Lopressor (Beta Magda)) 12.5 mg PO BID [facility] Last Admin: 05/20/18 08:11 Dose: 12.5 mg Nutritional Formula (Lactose Free) (Glucerna Shake) 120 ml PO 4X/DAY [facility] Last Admin: 05/20/18 08:01 Dose: 120 ml Sodium Chloride () 5 - 15 ml IV UD PRN PRN Reason: SALINE FLUSH Last Admin: 05/15/18 22:06 Dose: 15 ml Medical Necessity - Tobacco Use Smoking Status: Former smoker Tobacco Use: Cigarettes Assessment/Plan 82 y/o with PMHx of Type 2DM, with reported noncompliance with his medications, admitted with DKA. Was on insulin drip in the ICU and transitioned to insulin, patient is currently on the PCU floor, awaiting discharge to long term facility. 1. Acute DKA/type II DM, uncomplicated, HbA1c 13.3, blood sugars slightly uncontrolled because of D5w, will discontinue D5W, maintain on current Lantus 35 unitd bid, continue on accucheks and ISS. 2. Hypernatremia secondary to dehydration, resolved, sodium is back to normal, encourage liberal fluid intake, trend labs in am 3. Atrial flutter, controlled, on metoprolol, Eliquis 4. CEE on CKD, unclear stage, creatinine is improved, will continue to monitor 5. Chest pain, elevated troponins, likely secondary to non-AL troponin elevation, stress test negative 6. DVT PPx- Eliquis 7. Disposition: DC to SNF when bed is available. Code Visit Inpatient E&M: 51210 Subs Hosp L2
[2018-05-20 12:01] LABS: Bedside Glucose 329 mg/dL (70-110)
[2018-05-20 17:00] LABS: Bedside Glucose 226 mg/dL (70-110)
[2018-05-20 22:21] LABS: Bedside Glucose 213 mg/dL (70-110)
[2018-05-21] VITALS (8 sets, daily range): BP systolic 110–132; BP diastolic 45–57; PULSE 46–60; RESP 16–18; TEMP 36.4–37; O2SAT 94–98
[2018-05-21 05:27] LABS: Absolute Lymphocyte Count 0.99 X10^3/ul (0.83-4.51); Absolute Neutrophil Count 3.6 X10^3/uL (2.0-7.7); Basophil# 0.01 X10^3/uL; Basophil% 0.2 % (0-1); Eosinophil# 0.05 X10^3/uL; Eosinophils% 0.9 % (0-5); Hemoglobin 12.3 g/dl (13.0-16.5); Lymphocyte # 0.99 X10^3/ul (4.0); Lymphocyte % 18.2 % (19-41); Mean Corp Hgb Conc 33.2 g/gl (32-36); Mean Corpuscular Hgb 30.1 pg (27.0-32.0); Mean Corpuscular Volume 90.5 fL (80-94); Mean Platelet Vol. 11.3 fl (6.2-12.0); Monocyte# 0.75 X10^3/uL; Monocyte% 13.8 % (0-10); Neutrophil % 66.3 % (47-70); Platelet Count 132 K/mm3 (150-450); RBC Distribution Width CV 13.5 % (11.6-14.6); RBC Distribution Width SD 44.2 fl (35.1-43.9); Red Blood Count 4.09 M/mm3 (4.6-6.2); White Blood Count 5.4 K/mm3 (4.4-11.0)
[2018-05-21 05:28] LABS: POSITIVE COUNT NO; POSITIVE DIFFERENTIAL NO; POSITIVE MORPHOLOGY NO
[2018-05-21 05:46] LABS: Anion Gap 6 (5-15); BUN 23 mg/dL (7-18); BUN/Creat Ratio 19.5 RATIO (10-20); Calcium,Total 7.6 mg/dL (8.5-10.1); Chloride 109 mmol/L (98-107); Creatinine, Serum 1.18 mg/dL (0.70-1.30); EST Glomerular Filtration Rate 63 mL/min (>60); Est Glom Filt Rate - Afr Amer 76 mL/min (>60); Estimated Creatinine Clearance 50.69 ml/min; Glucose 111 mg/dL (74-106); Potassium 3.9 mmol/L (3.5-5.1); Sodium Level 145 mmol/L (136-145)
[2018-05-21] MEDS: Menthol/Lanolin/Calamine/Znox 113 GM Tube 1 APPLIC TOPICAL ×2 (07:04→14:06)
[2018-05-21 07:10] LABS: Bedside Glucose 90 mg/dL (70-110)
[2018-05-21] MEDS: Glucerna Shake 120 ML LIQUID PO (09:02)
[2018-05-21] MEDS: APIXABAN 2.5 MG TABLET PO (09:02)
--- NOTE | 2018-05-21 10:07 | CASEMGMT ---
Addendum entered by Disha Lincoln 05/21/18 10:52: Therapy did steps with patients and he did well. Disha SN[employer]DEN [employer] Original Note: SW received a message that patient was denied for retirement. SW called patient's daughter, Shantell and let her know this information. SW told her we can set him up with home health. SW explained this would mean therapy would come out a couple of times a week and nursing would come out maybe once a week. She said that would be fine. LILLY told her he will be discharged today. She asked that SW let her know so she can send someone to pick him up. LILLY called Shy from [facility] and they would be able to take patient. SW will speak with patient as well. Therapy said they will work with patient on steps today. Plan: Home with [facility] fdc, PT, and OT Disha [employer]DEN [employer]
--- NOTE | 2018-05-21 10:24 | PCM.DC ---
- Discharge Diagnoses Reason(s) for Visit for Discharge Instructions: Lethargy, DKA You will use the following diet at home:: Calorie/Carbohydrate Controlled (specify 1200, 1400, etc), Cardiac Your food should be the consistency of: Regular Your liquids should be the consistency of: Regular/Thin Discharge Activity: Return to Normal Activity Additional Instructions: Check blood sugars at least 4 times a day. Follow-up with Dr. Ambrosio within 1 week with blood sugar log. Take note of changes to your medications. Follow-up with Dr. Armstrong in 2 weeks. Allergies/Adverse Reactions: Allergies No Known Allergies Allergy (Verified 05/15/18 11:12) Medications to take at Discharge Metformin HCl [Glucophage] 1,000 mg PO BIDCM 05/15/18 Apixaban [Eliquis] 2.5 mg PO BID #60 tablet 05/21/18 Glucerna Shake 120 ml PO 4X/DAY #120 liquid 05/21/18 Insulin Glargine [Lantus SoloStar Pen] 5 units SC BID #1 pen 05/21/18 Insulin Lispro [Humalog KwikPen] See Protocol SC ACHS #1 insuln.pen 05/21/18 Metoprolol Tartrate [Lopressor (beta kaajl)] 12.5 mg PO BID #60 tablet 05/21/18 The following prescriptions were given: Insulin Lispro [Humalog KwikPen] See Protocol SC ACHS #1 insuln.pen Apixaban [Eliquis] 2.5 mg PO BID #60 tablet Insulin Glargine [Lantus SoloStar Pen] 5 units SC BID #1 pen Metoprolol Tartrate [Lopressor (beta kajal)] 12.5 mg PO BID #60 tablet Glucerna Shake 120 ml PO 4X/DAY #120 liquid Orders to be completed after discharge: Basic Metabolic Profile (BMP) Time Frame: 3 Days, Location: Laboratory Glucometer Location: None Selected Primary Care Physician: Elana Ambrosio DO [Primary Care Provider] - Please follow up with your Primary Care Physician in: within 1-2 weeks Test Results: Test results from this visit will be discussed in further detail at your follow-up appointment, if applicable. Please Follow Up With: Vitaliy Armstrong MD When: in 2 weeks Proposed Discharge Date: 05/21/18
--- NOTE | 2018-05-21 10:30 | DCINST_ITS ---
- Discharge Diagnoses Reason(s) for Visit for Discharge Instructions: Lethargy, DKA You will use the following diet at home:: Calorie/Carbohydrate Controlled (specify 1200, 1400, etc), Cardiac Your food should be the consistency of: Regular Your liquids should be the consistency of: Regular/Thin Discharge Activity: Return to Normal Activity Additional Instructions: Check blood sugars at least 4 times a day. Follow-up [facility] Dr. Ambrosio within 1 week with blood sugar log. Take note of changes to your medications. Follow-up with Dr. Armstrong in 2 weeks. Allergies/Adverse Reactions: Allergies No Known Allergies Allergy (Verified 05/15/18 11:12) Medications to take at Discharge Metformin HCl [Glucophage] 1,000 mg PO BIDCM 05/15/18 Apixaban [Eliquis] 2.5 mg PO BID #60 tablet 05/21/18 Glucerna Shake 120 ml PO 4X/DAY #120 liquid 05/21/18 Insulin Glargine [Lantus SoloStar Pen] 5 units SC BID #1 pen 05/21/18 Insulin Lispro [Humalog KwikPen] See Protocol SC ACHS #1 insuln.pen 05/21/18 Metoprolol Tartrate [Lopressor (beta kajal)] 12.5 mg PO BID #60 tablet 05/21/18 The following prescriptions were given: Insulin Lispro [Humalog KwikPen] See Protocol SC ACHS #1 insuln.pen Apixaban [Eliquis] 2.5 mg PO BID #60 tablet Insulin Glargine [Lantus SoloStar Pen] 5 units SC BID #1 pen Metoprolol Tartrate [Lopressor (beta kajal)] 12.5 mg PO BID #60 tablet Glucerna Shake 120 ml PO 4X/DAY #120 liquid Orders to be completed after discharge: Basic Metabolic Profile (BMP) Time Frame: 3 Days, Location: Laboratory Glucometer Location: None Selected Primary Care Physician: Elana Ambrosio DO [Primary Care Provider] - Please follow up with your Primary Care Physician in: within 1-2 weeks Test Results: Test results from this visit will be discussed in further detail at your follow- up appointment, if applicable. Please Follow Up With: Vitaliy Armstrong MD When: in 2 weeks Proposed Discharge Date: 05/21/18
--- NOTE | 2018-05-21 10:33 | PCM.DC.SUM ---
Discharge Date and Diagnosis Date of Admission: 05/15/18 Date of Discharge: 05/21/18 Hospital Course and Treatment Imaging Results: Clinical Impression(s) from Imaging Studies Chest X-Ray 05/15/18 12:30 IMPRESSION: No acute cardiopulmonary disease. Electronically Signed: William Acosta MD at 13:45 EST , Service support , Cardiology Summary of Care Provided: 82 y/o with PMHx of Type 2DM, with reported noncompliance with his medications, admitted with DKA. He was initially admitted to ICU and managed on insulin drip. His blood sugars improved. HbA1c is 13.3. He was transitioned to Lantus. He had complained of chest discomfort and had elevated troponins which was trended at admission. Cardiology was consulted. Patient was also found to be in atrial flutter, started on metoprolol and Eliquis. He had a stress test done which was negative Over the course of his stay, he had acute kidney injury on CKD, creatinine improved with hydration. Was found to be hyponatremic second to dehydration which also improved with hydration. His blood sugars were noted to be running slightly low, insulin was adjusted. Patient would need to follow-up with his primary care doctor within a week with a log of his blood sugars for further adjustment. Prescription for glucometer and Lancets were given to him Subjective: Day of discharge, he denied any complaints. Denied any dizziness or shortness of breath. [place] improved. - Physical Exam General: Alert, Oriented x3, Cooperative, No apparent distress HEENT: Atraumatic, PERRLA, EOMI, Normocephalic Neck: Supple, No JVD, Negative Carotid Bruits Lungs: Clear to auscultation, Normal air movement Cardiovascular: Normal S1, Normal S2, No murmurs, Irregular Rate Abdomen: Bowel Sounds Present, Soft, Non Tender, Non-Distended, No Hepato-splenomegaly Extremities: No edema Skin: No rashes, No breakdown Musculoskeletal: No Tenderness to Palpation of Joints or Extremities Lymphatic: No Cervical, Supraclavicular, or Inguinal Adenopathy Neurological: Cranial nerves II-XII grossly intact, Neuro grossly intact Psych/Mental Status: Normal Affect, Appropriate Vital Signs Temp Pulse Resp BP Pulse Ox 97.6 F L 59 L 16 110/56 L 95 05/21/18 08:46 05/21/18 08:46 05/21/18 08:46 05/21/18 08:46 05/21/18 08:46 Oxygen Flow Rate (L/min) 2 Oxygen Delivery Method Room Air Weight: 90.3 kg Body Mass Index (BMI) 26.2 Finger Stick Blood Glucose 92 Intake and Output for Last 24 Hours 05/19/18 05/20/18 05/21/18 23:59 23:59 23:59 Intake Total 2111 / 2112 947 / 947 240 / 240 Output Total 300 / 300 500 / 500 625 / 625 Balance 1811 / 1811 447 / 447 -385 / -385 Laboratory Tests Past 24 Hrs 05/21/18 05/21/18 05:05 05:05 WBC 5.4 RBC 4.09 L Hgb 12.3 L Hct 37.0 L MCV 90.5 MCH 30.1 MCHC 33.2 RDW 13.5 RDW Differential 44.2 H Plt Count 132 L MPV 11.3 Immature Gran % (Auto) 0.600 Neut % (Auto) 66.3 Lymph % (Auto) 18.2 L [place] % (Auto) 13.8 H Eos % (Auto) 0.9 Baso % (Auto) 0.2 Absolute Neuts (auto) 3.6 Absolute Lymphs (auto) 0.99 Total Counted Not Reportable Sodium 145 Potassium 3.9 Chloride 109 H Carbon Dioxide 30.0 Anion Gap 6 BUN 23 H Creatinine 1.18 Estim Creat Clear Calc 50.69 Est GFR (MDRD) Af Amer 76 Est GFR (MDRD) Non-Af 63 BUN/Creatinine Ratio 19.5 Glucose 111 H Calcium 7.6 L POC Glucose 05/21/18 05/20/18 05/20/18 07:02 22:07 16:47 POC Glucose 90 213 H 226 H 05/20/18 11:53 POC Glucose 329 H Discharge Diet: Low fat/ Low Cholesterol, 2000 mg Sodium Diet, Carb Control Diet Discharge Activity: Return to Normal Activity Home Medications: Medications to take at Discharge Metformin HCl [Glucophage] 1,000 mg PO BIDCM 05/15/18 Apixaban [Eliquis] 2.5 mg PO BID #60 tablet 05/21/18 Glucerna Shake 120 ml PO 4X/DAY #120 liquid 05/21/18 Insulin Glargine [Lantus SoloStar Pen] 5 units SC BID #1 pen 05/21/18 Insulin Lispro [Humalog KwikPen] See Protocol SC ACHS #1 insuln.pen 05/21/18 Metoprolol Tartrate [Lopressor (beta kajal)] 12.5 mg PO BID #60 tablet 05/21/18 Following Prescrptions Were Given to Patient: Insulin Lispro [Humalog KwikPen] See Protocol SC ACHS #1 insuln.pen Apixaban [Eliquis] 2.5 mg PO BID #60 tablet Insulin Glargine [Lantus SoloStar Pen] 5 units SC BID #1 pen Metoprolol Tartrate [Lopressor (beta kajal)] 12.5 mg PO BID #60 tablet Glucerna Shake 120 ml PO 4X/DAY #120 liquid Other Amb Orders: Basic Metabolic Profile (BMP) Time Frame: 3 Days, Location: Laboratory Glucometer Location: None Selected Primary Care Physician: Elana Ambrosio DO [Primary Care Provider] - Please follow up with your Primary Care Physician in: within 1-2 weeks Please Follow Up With: Vitaliy Armstrong MD When: in 2 weeks Disposition: Home with Home Health Minutes spent on discharge:: 40 Patient Condition:: Stable Medical Necessity - Tobacco Use Smoking Status: Former smoker Tobacco Use: Cigarettes Meaningful Use Info Meaningful Use Diagnoses (Choose all that apply): None applicable Code Visit Inpatient E&M: 88553 Disch Hosp
--- NOTE | 2018-05-21 10:49 | CASEMGMT ---
Pt to be sent home with glucometer at discharge [facility] to pt discharge. Pt was also already referred to [facility], which will start after C is complete. Saurabh CARDOZA CM
[2018-05-21] MEDS: Metoprolol Tartrate 25 MG Tablet 12.5 MG PO (10:59)
[2018-05-21 11:11] LABS: Bedside Glucose 184 mg/dL (70-110)
[2018-05-21] MEDS: Insulin Lispro 100 UNIT/ML INSULN.PEN SC (12:50)
--- NOTE | 2018-05-21 14:23 | CASEMGMT ---
SW spoke with patient's daughters when they arrived. SW let them know that therapy took patient's on the steps and he did really well. SW also let them know that the RN MARIAMA was able to set up home health with [facility] in [place]. Plan: Patient is going to be going home with his daughter in [place]. [facility] HH was canceled as they do not go to [place]. [facility] was arranged for penitentiary, PT, and OT. Disha SNOWDEN [employer]
== END 2018-05-21 15:18 | disposition home or self-care (01) | DRG 638 ==
LOC: ED 12:59 → ICU 15:28 → PCU 05-16 09:21
PROVIDERS: Family Medicine; Internal Medicine Cardiovascular Disease; Admitting Provider Student in an Organized Health Care Education/Training Program; Emergency Provider Emergency Medicine; Family Provider Family Medicine; PCP Family Medicine; Visit Provider Internal Medicine
DX: E11.10 Type 2 diabetes mellitus with ketoacidosis without coma (principal); N17.9 Acute kidney failure, unspecified; I48.92 Unspecified atrial flutter; E87.1 Hypo-osmolality and hyponatremia; E87.0 Hyperosmolality and hypernatremia; Z91.14 Patient's other noncompliance with medication regimen; Z79.84 Long term (current) use of oral hypoglycemic drugs; Z23 Encounter for immunization; Z87.891 Personal history of nicotine dependence; E86.0 Dehydration; R74.8 Abnormal levels of other serum enzymes
CPT/HCPCS: 36415; 71045; 78452; 80048; 81001; 82009; 82570; 82962; 83036; 83735; 84100; 84300; 84443; 84484; 85025; 85610; 85730; 93005; 93017; 93306; 97110; 97116; 97162; 97165; 97530; 97535; 97802; 97803; 99283; A9500; J7030; J7050; Q9957; 90686; A4216; J2785; J7799